=== PATIENT | female | born 1980 | race Caucasian/White ===

== ENCOUNTER 2022-04-10 17:54 | Emergency (ER) | payer OTHER, SELFPAY ==
[2022-04-10 18:18] VITALS: BP 112/73; PULSE 110; RESP 18; TEMP 37.9; O2SAT 97; BMI 28.8
--- NOTE | 2022-04-10 18:31 | ED_ITS ---
HPI - General Adult General Time Seen by Provider: 18:32 Date Seen: 04/10/22 Chief complaint: Fever Stated complaint: High Temp 101.8 - Chemo Patient Time Seen by Provider: 04/10/22 17:55 Source: patient Mode of arrival: ambulatory Limitations: no limitations History of Present Illness HPI narrative: Patient is a 42 year white female currently undergoing chemotherapy under Dr. Mitchell King [facility] for breast cancer. She has had a fever today, the kids at home have been sick. She has no cough of significance mild sore throat, mild achiness and some abdominal cramping. She last had chemotherapy last week. She is getting this through a port. She has noticed no skin rashes, neck stiffness, neurologic complaints. Related Data Home Medications Medication Instructions Recorded Confirmed cholecalciferol (vitamin D3) 50 50 mcg PO QDAY 01/26/22 03/23/22 mcg (2,000 unit) capsule fluoxetine 40 mg capsule 40 mg PO QDAY 01/26/22 03/23/22 ibuprofen 200 mg tablet (Advil) 400 mg PO Q8H 01/26/22 03/23/22 lidocaine-prilocaine 2.5 %-2.5 % 2.5 g topical ONCE PRN 01/26/22 03/23/22 topical cream olanzapine 5 mg tablet 5 mg PO QDAY PRN 01/26/22 03/23/22 ondansetron HCl 8 mg tablet 8 mg PO QDAY PRN 01/26/22 03/23/22 prochlorperazine maleate 10 mg 10 mg PO Q8-12H PRN 01/26/22 04/06/22 tablet Senna-S 1 tab BID PRN 03/16/22 03/23/22 oxybutynin chloride 5 mg tablet 5 mg PO QHS 03/23/22 03/30/22 Previous Rx's Medication Instructions Recorded lorazepam 0.5 mg tablet (Ativan) 0.5 mg PO QDAY PRN nausea and 01/26/22 vomiting #30 tabs Allergies Allergy/AdvReac Type Severity Reaction Status Date / Time No Known Drug Allergies Allergy Verified 03/23/22 11:39 Review of Systems Status of ROS: Reports: 6 or more systems reviewed and unremarkable except as noted in History and below PFSH PFSH Social History Non-prescribed substance use: denies use Exam Narrative: Exam Narrative: Objective: Patient has a temperature 100.2?, appears in no apparent distress, noncyanotic Breathing easily Speaks in unless even and nonlabored sentences HEENT is unremarkable scleral icterus mouth is clear, throat is not markedly reddened Neck is supple Chest clear Heart rhythm regular without murmur Abdomen benign soft Extremities are no edema neurologic nonfocal Const: Vital Signs, click to edit/add: Vital Signs - 24 hr 04/10/22 18:18 04/10/22 19:00 Temperature 100.2 F H Pulse Rate [Right Pulse Oximeter] 110 H Respiratory Rate 18 Blood Pressure [Ri ght Upper Arm] 112/73 Pulse Oximetry 97 Oxygen Delivery Me thod Room Air Room Air Course Vital Signs Vital signs: Initial Vital Signs Temperature 100.2 F H 04/10/22 18:18 Temperature Source Temporal Artery Scan 04/10/22 18:18 Pulse Rate 110 H 04/10/22 18:18 Respiratory Rate 18 04/10/22 18:18 Blood Pressure 112/73 04/10/22 18:18 Blood Pressure Mean 86 04/10/22 18:18 Blood Pressure Position Sitting 04/10/22 18:18 Pulse Oximetry 97 04/10/22 18:18 Oxygen Delivery Method 04/10/22 18:18 Vital Signs Temperature 100.2 F H 04/10/22 18:18 Pulse Rate 110 H 04/10/22 18:18 Respiratory Rate 18 04/10/22 18:18 Blood Pressure 112/73 04/10/22 18:18 Pulse Oximetry 97 04/10/22 18:18 Oxygen Delivery Method 04/10/22 18:18 Temperature 100.2 F H 04/10/22 18:18 Pulse Rate 110 H 04/10/22 18:18 Respiratory Rate 18 04/10/22 18:18 Blood Pressure 112/73 04/10/22 18:18 Pulse Oximetry 97 04/10/22 18:18 Oxygen Delivery Method 04/10/22 19:00 Medical Decision Making MDM Narrative Medical decision making narrative: Patient is a 42-year-old female undergoing chemotherapy for breast cancer, her children at home a been sick with a viral type illness. Will swab her for COVID/influenza/RSV. Will also do a strep test. Will get a blood culture, lab studies, will give her Rocephin 1 g IM to cover her until labs return tomorrow and cultures can be followed up. She can contact the [facility] for follow-up on laboratory studies. Return to the ED sooner problems or concerns. Tylenol or Advil as needed. Addendum: The patient is positive for COVID, she is also getting chemotherapy, I would recommend thanks I would recommend she contact [facility] to follow up her blood cultures, and to document symptoms tomorrow, and get recommendations from the oncologist regarding additional treatment for COVID in her situation. Lab Data Labs: Lab Results 04/10/22 04/10/22 04/10/22 Range/Units 18:35 18:40 19:08 WBC 5.19 (4.50-11.00) K/uL RBC 2.91 L (4.00-5.20) m/uL Hgb 9.4 L (12.0-16.0) gm/dL Hct 27.7 L (33.0-51.0) % MCV 95 (80-100) fL MCH 32 (26-34) pg MCHC 34 (32-36) gm/dL RDW Coeff of Mercedes 13.6 (11.5-15.5) % Plt Count 232 (140-440) K/uL Neut % (Auto) 84.7 H (42.0-72.0) % Lymph % (Auto) 6.2 L (20-44) % [place] % (Auto) 6.0 (0.0-11.0) % Eos % (Auto) 2.9 (0.0-7.0) % Baso % (Auto) 0.2 (0.0-3.0) % Neut # (Auto) 4.40 (1.7-7.0) K/uL Lymph # (Auto) 0.30 L (0.90-2.90) K/uL [place] # (Auto) 0.30 (0.00-0.90) K/UL Eos # (Auto) 0.15 (0.00-0.50) K/uL Baso # (Auto) 0.01 (0.00-0.30) K/uL Abs Immat Gran (auto) 0.00 (0.00-0.30) K/uL Imm/Tot Granulo (auto) 0.0 % Sodium (135-149) mmol/L Potassium (3.6-5.1) mmol/L Chloride (96-114) mmol/L Carbon Dioxide (20-32) mmol/L BUN (5-24) mg/dL Creatinine (0.5-1.5) mg/dL Estimated Creat Clear Estimated GFR ml/min Glucose (60-115) mg/dL Calcium (8.4-10.6) mg/dL Total Bilirubin (0.1-1.5) mg/dL Direct Bilirubin (0.0-0.5) mg/dL AST (12-35) U/L ALT (4-35) U/L Alkaline Phosphatase (40-150) U/L Total Protein (6.0-8.3) g/dL Albumin (3.3-5.0) g/dL SARS-CoV-2 (PCR) POSITIVE SARS-CoV-2 A (Negative) Influenza Type A (PCR) Negative PCR FLU A (Negative) Influenza Type B (PCR) Negative PCR FLU B (Negative) RSV (PCR) Negative PCR RSV (Negative) Group A Strep DNA NOT DETECTED (Not Detectd) 04/10/22 Range/Units 19:08 WBC (4.50-11.00) K/uL RBC (4.00-5.20) m/uL Hgb (12.0-16.0) gm/dL Hct (33.0-51.0) % MCV (80-100) fL MCH (26-34) pg MCHC (32-36) gm/dL RDW Coeff of Mercedes (11.5-15.5) % Plt Count (140-440) K/uL Neut % (Auto) (42.0-72.0) % Lymph % (Auto) (20-44) % [place] % (Auto) (0.0-11.0) % Eos % (Auto) (0.0-7.0) % Baso % (Auto) (0.0-3.0) % Neut # (Auto) (1.7-7.0) K/uL Lymph # (Auto) (0.90-2.90) K/uL [place] # (Auto) (0.00-0.90) K/UL Eos # (Auto) (0.00-0.50) K/uL Baso # (Auto) (0.00-0.30) K/uL Abs Immat Gran (auto) (0.00-0.30) K/uL Imm/Tot Granulo (auto) % Sodium 135 (135-149) mmol/L Potassium 4.0 (3.6-5.1) mmol/L Chloride 105 (96-114) mmol/L Carbon Dioxide 25 (20-32) mmol/L BUN 17 (5-24) mg/dL Creatinine 0.9 (0.5-1.5) mg/dL Estimated Creat Clear 74.77 Estimated GFR 83 ml/min Glucose 112 (60-115) mg/dL Calcium 8.7 (8.4-10.6) mg/dL Total Bilirubin 0.3 (0.1-1.5) mg/dL Direct Bilirubin 0.0 (0.0-0.5) mg/dL AST 22 (12-35) U/L ALT 30 (4-35) U/L Alkaline Phosphatase 72 (40-150) U/L Total Protein 6.1 (6.0-8.3) g/dL Albumin 3.8 (3.3-5.0) g/dL SARS-CoV-2 (PCR) (Negative) Influenza Type A (PCR) (Negative) Influenza Type B (PCR) (Negative) RSV (PCR) (Negative) Group A Strep DNA (Not Detectd) Discharge Plan Discharge Clinical Impression: Fever, Chemotherapy management, encounter for, Breast cancer Patient Disposition: Home w/ Parent or Adult Condition: Stable Additional Instructions: Light activity, fluids, regular diet as tolerated. Tylenol or Advil as needed for discomfort or fever. Will give her Rocephin tonight to cover for any infection, until blood cultures are return. Please call [facility] tomorrow for laboratory follow-up, and follow up with the blood culture results. Return sooner to the ER problems concerns difficulty. We will call with results of the swab for COVID/influenza/RSV. Addendum: The patient is positive for COVID, I would recommend that they contact [facility] tomorrow and get lab updates, follow-up blood cultures and document symptoms. Also can discuss with oncologist regarding additional treatment for COVID if needed Activity Level: Light activity Discharge Diet: Regular Prescriptions: No Action lidocaine-prilocaine 2.5-2.5 % cream 2.5 g topical ONCE PRN prochlorperazine maleate 10 mg tablet 10 mg PO Q8-12H PRN Hold Instructions: no nausea olanzapine 5 mg tablet 5 mg PO QDAY PRN Hold Instructions: not needed at this time ondansetron HCl 8 mg tablet 8 mg PO QDAY PRN Hold Instructions: not needed at this tme fluoxetine 40 mg capsule 40 mg PO QDAY ibuprofen [Advil] 200 mg tablet 400 mg PO Q8H cholecalciferol (vitamin D3) 50 mcg (2,000 unit) capsule 50 mcg PO QDAY lorazepam [Ativan] 0.5 mg tablet 0.5 mg PO QDAY PRN (Reason: nausea and vomiting) Qty: 30 0RF Hold Instructions: not needing right now oxybutynin chloride 5 mg tablet 5 mg PO QHS Senna-S 1 tab 1 tab BID PRN Follow Up/Referrals: Luz Nagy MD [Primary Care Provider] - Stand Alone Forms: [employer] Info Instructions
--- OUTSIDE RECORDS SUMMARY | 2022-04-10 18:36 | XMS_ITS | Clinical Summary ---
:1980 Author Organization [employer] [facility] [place] [address] Care Team Providers Name Role Phone Roxanne Kerns MD Unavailable Miguelina Cuenca RN Unavailable Nelli Palmer DO Primary Care Provider Ibis Velazquez MD Unavailable Blake Wyatt MD Unavailable Allergies No known active allergies Medications Medication Sig Dispensed Refills Start Date End Date Status FLUoxetine (PROZAC) Take 40 mg by mouth 0 09/22/2021 Active 40 mg capsule once daily. cholecalciferol, Take 1 Tablet (5,000 0 12/03/2021 Active Vitamin D3, 5,000 units) by mouth once unit tab tablet daily. acetaminophen Take 2 Tablets 0 12/15/2021 Active (TYLENOL EXTRA (1,000 mg) by mouth STRGTH) 500 mg every 6 hours if tablet needed for Pain (For mild pain 1st choice. May take either Tylenol tablet or liquid, if both ordered.). Max acetaminophen dose: 4000mg in 24 hrs. ibuprofen (ADVIL; Take 1 Tablet (600 0 12/15/2021 Active MOTRIN) 600 mg mg) by mouth every 8 tablet hours if needed for Pain (For mild pain 2nd choice). lidocaine-prilocaine Apply pea size 30 g 1 01/07/2022 Active (EMLA) 2.5-2.5 % amount over port creamIndications: about 1 hour prior Malignant neoplasm to port access. of breast in female, Cover with a estrogen receptor dressing such as positive, tegaderm or plastic unspecified wrap and do not laterality, fully rub in. unspecified site of breast (HC) Therapeutic As directed. For 1 Each 0 01/07/2022 Active WigIndications: chemotherapy-induced Malignant neoplasm alopecia of breast in female, estrogen receptor positive, unspecified laterality, unspecified site of breast (HC) oxybutynin Take 1 Tablet (5 mg) 60 Tablet 0 01/18/2022 Active (DITROPAN) 5 mg by mouth in the tabletIndications: morning and 1 Tablet Malignant neoplasm (5 mg) in the of female breast, evening. unspecified estrogen receptor status, unspecified laterality, unspecified site of breast (HC) Active Problems Problem Noted Date Malignant neoplasm of overlapping sites of left breast in female, estrogen 11/10/2021 receptor positive Cancer Staging: Clinical: Stage IA (cT1c , cN0, cM0, G3, ER+, CA+, HER2-) - Signed by Roxanne Kerns MD on 11/10/2021 Pathologic: Stage IB (pT1, pN1a(sn), cM0 , G3, ER+, CA+, HER2-) - Signed by Roxanne Kerns MD on 12/16/2021 Infiltrating ductal carcinoma of breast 10/28/2021 Family history of blood clots 07/23/2019 Overview: Father and mother had blood clots per pa tient due to 'bad veins in his legs.' had striped Family history of breast cancer 07/23/2019 Overview: Sister breast cancer age 51. Sister did not have genetic testing per patient Encounters Date Type Specialty Care Team Description 01/18/2022 Orders Only Ibis Velazquez MD <No scans attached> 01/18/2022 Telephone Laura Ibarra RN 01/12/2022 Hospital Encounter Malignant neoplasm of overlapping sit es of left breast in femal e, estrogen recept or positive (HC) ( Primary Dx) 01/12/2022 Office Visit Ibis Velazquez MD Follow Up 01/12/2022 Telephone Jason Queen Follow Up (na usea ) MD Nadeem 01/11/2022 Anesthesia Event Heriberto Camarena MD Desa, Tenzin, MD 01/11/2022 Surgery Dakota Kamara INSERTION RIG HT INTERNAL MD Jesse JUGULAR MAMADOU FIERRO 01/11/2022 Hospital Encounter Dakota Kamara MD 01/11/2022 Travel from Last 3 Months Immunizations Name Administration Dates Next Due COVID-19 vaccine (Moderna 100mcg/0.5mL) JACLYN DOUGLAS 08/27/2020, 07/30/2020 COVID-19 vaccine (Pfizer-BioNTech 30mcg/0.3mL) 12YO+ 022 AYLEEN-SUCROSE JACLYN DOUGLAS Influenza RIV4 (Age 18+ Years) PRESERV FREE 04/02/2020 Td (Age >=7 Years) 10/14/2021 Family History Medical History Relation Name Comments Cancer Father metastatic cance r of unknown primary Melanoma Father Other Father DVT Skin cancer Father not melanoma Cancer-breast Maternal Aunt passed due to br [place] Osteoarthritis Maternal Grandmother Cancer-colon Maternal Uncle Good Health Mother Cancer-breast Paternal Aunt dx late 70s - ea rly 80s Cancer-breast Sister 1 dx approx 2009, doing well as of 2021 Rheum arthritis Sister 2 Cancer-ovarian No Family History Cancer-pancreatic No Family History Relation Name Status Comments Father (Age 75) cancer Maternal Aunt Maternal Grandmother Maternal Uncle Mother Alive Paternal Aunt Alive Sister 1 Alive Sister 2 Social History Tobacco Use Types Packs/Day Years Used Date Never Smoker Smokeless Tobacco: Never Used Tobacco Cessation: Counseling Given: Yes Alcohol Use Standard Drinks/Week Comments Yes 0 (1 standard drink = 0.6 oz pure alcoho l) a couple drinks a week. Alcohol Habits Answer Date Recorded How often do you have a drink containing 2-3 times a week 07/23/2019 alcohol? How many drinks containing alcohol do you have 1 or 2 07/23/2019 on a typical day when you are drinking? How often do you have six or more drinks on one Never 07/23/2019 occasion? Comment: a couple drinks a week. 01/07/2022 Sex Assigned at Date Recorded Not on file Obstetrics History Para Term AB IAB SAB Ectopic Multiple Living Live Births 3 3 3 0 0 0 0 0 0 3 3 Date Outcome GA Total Labor/2nd/3rd Weight Sex Delivery Anes PTL Kendra A 1 A5 Name Clin Labor Term Vag Misty ng Term Vag Misty ng Term Vag Misty ng Last Filed Vital Signs Vital Sign Reading Time Taken Comments Blood Pressure 118/67 01/12/2022 8:52 AM CDT Pulse 65 01/12/2022 8:52 AM CDT Temperature 36.7 ??C (98.1 ??F) 01/12/2022 8:52 AM CDT Respiratory Rate 16 01/12/2022 8:52 AM CDT Oxygen Saturation 98% 01/11/2022 12:00 PM CDT Inhaled Oxygen Concentration - - Weight 74.6 kg (164 lb 8 oz) 01/12/2022 8:52 AM CDT Height 165.1 cm (5' 5) 01/12/2022 8:52 AM CDT Body Mass Index 27.37 01/12/2022 8:52 AM CDT Plan of Treatment Upcoming Encounters Date Type Specialty Care Team Description 06/21/2022 Office Visit Silvia Saunders PA [address] [address] (Wo rk) Health Maintenance Due Date Last Done Comments Pneumococcal series for age 19-64 02/19/1988 (1 - PCV) COVID-19 vaccine series (4 - 12/09/2021 10/14/2021, 021, Booster) 07/30/2020 Influenza for age 9-49 01/27/2022 04/02/2020 Depression screening for age 12+ 10/14/2022 10/14/2021, , 03/01/2017, Additional history exists BMI (ht and wt on same day) for 01/12/2023 01/12/2022, 12/27, age 18+ 01/05/2022, Additional history exists Pap test for age 21-65 07/23/2024 07/23/2019, 07/23/2019, 07/16/2015 Tetanus booster 10/15/2031 10/14/2021, 09/27/2007 (Completed outside of [facility]) Tdap Completed 09/27/2007 (Completed outside of [facility]) Hepatitis C screening for age Completed 01/12/2022 18-79 Medical Devices Implanted Type Area Holistic Pulser Device Shelf Model / Identifier Expiration Serial / Date Lot Port 8fr Powerport Clearvue Isp Micro Intrdcr - [id number] Right: Bard Peripheral 12/26/2022 [id number] / Implanted: Qty: 1 on 01/11/2022 by Dakota Abbasi MD at [facility] [employer] / Vein [id number] Procedures Procedure Name Priority Date/Time Associated Comments Diagnosis HBSAG (HBS) Add On 01/12/2022 8:31 Malignant neoplasm Result s for this AM CDT of overlapping procedure are in sites of left the results breast in female, section. estrogen receptor positive (HC) ANTI HCV Add On 01/12/2022 8:31 Malignant neoplasm Result s for this AM CDT of overlapping procedure are in sites of left the results breast in female, section. estrogen receptor positive (HC) CBC WITH AUTO STAT 01/12/2022 8:31 Malignant neoplasm Resul ts for this DIFFERENTIAL AM CDT of overlapping procedure are in sites of left the results breast in female, section. estrogen receptor positive (HC) COMP METABOLIC PANEL STAT 01/12/2022 8:31 Malignant neoplas m Results for this AM CDT of overlapping procedure are in sites of left the results breast in female, section. estrogen receptor positive (HC) CBC WITH AUTO STAT 01/12/2022 8:31 Malignant neoplasm Resul ts for this DIFFERENTIAL AM CDT of overlapping procedure are in sites of left the results breast in female, section. estrogen receptor positive (HC) XR CHEST 1 VIEW CHETAN 01/11/2022 10:51 Results for this PORTABLE AM CDT procedure are i n the results section. XR C-ARM CVAD Routine 01/11/2022 10:14 Results fo r this AM CDT procedure are i n the results section. SUPRAGLOTTIC-LMA Routine 01/11/2022 9:45 Results for this AM CDT procedure are i n the results section. INSERTION MAMADOU Class E Urgent 01/11/2022 9:07 Breast Cancer CATHETER AM CDT Case Notes C ARM URINE Preop 01/11/2022 8:00 AM CDT Re sults for this procedure are in the results section . from Last 3 Months Results (ABNORMAL) CBC WITH AUTO DIFFERENTIAL (01/12/2022 8:31 AM CDT) [facility] Method Time Signature WHITE BLOOD 6.5 4.5 - 01/12/2022 [facility] COUNT 11.0 9:03 AM CDT LABORATORY-JOIE thou/cu TRAL mm LABORATORY RED BLOOD COUNT 3.76 (L) 4.00 - 01/12/2022 [facility] 5.20 9:03 AM CDT LABORATORY-JOIE mil/cu mm TRAL LABORATORY HEMOGLOBIN 11.9 (L) 12.0 - 01/12/2022 [facility] 16.0 g/dL 9:03 AM CDT LABORATORY-JOIE TRAL LABORATORY HEMATOCRIT 35.4 33.0 - 01/12/2022 [facility] 51.0 % 9:03 AM CDT LABORATORY-JOIE TRAL LABORATORY MCV 94 80 - 100 01/12/2022 [facility] fL 9:03 AM CDT LABORATORY-JOIE TRAL LABORATORY MCH 31.6 26.0 - 01/12/2022 [facility] 34.0 pg 9:03 AM CDT LABORATORY-JOIE TRAL LABORATORY MCHC 33.6 32.0 - 01/12/2022 [facility] 36.0 g/dL 9:03 AM CDT LABORATORY-JOIE TRAL LABORATORY RDW 11.9 11.5 - 01/12/2022 [facility] 15.5 % 9:03 AM CDT LABORATORY-JO[facility] TRAL LABORATORY PLATELET COUNT 252 140 - 440 01/12/2022 [facility] thou/cu 9:03 AM CDT LABORATORY-JOIE mm TRAL LABORATORY MPV 9.3 6.5 - 01/12/2022 [facility] 11.0 fL 9:03 AM CDT LABORATORY-JOIE TRAL LABORATORY NRBC 0.0 % 01/12/2022 [facility] 9:03 AM CDT LABORATORY-JOIE TRAL LABORATORY ABS NRBC 0.0 thou /cu 01/12/2022 [facility] mm 9:03 AM CDT LABORATORY-JO[facility] TRAL LABORATORY % NEUT 53.1 % 01/12/2022 [facility] 9:03 AM CDT LABORATORY-[facility] TRAL LABORATORY % LYMPH 38.4 % 01/12/2022 [facility] 9:03 AM CDT LABORATORY-JO[facility] TRAL LABORATORY % MONO 7.1 % 01/12/2022 [facility] 9:03 AM CDT LABORATORY-JO[facility] TRAL LABORATORY % EOS 0.9 % 01/12/2022 [facility] 9:03 AM CDT LABORATORY-JOIE TRAL LABORATORY % BASO 0.2 % 01/12/2022 [facility] 9:03 AM CDT LABORATORY-JO[facility] TRAL LABORATORY % IMMATURE GRAN 0.3 % 01/12/2022 [facility] (METAS,MYELOS,CA 9:03 AM CDT LABORATORY- JOIE OS) TRAL LABORATORY ABSOLUTE 3.4 1.7 - 7.0 01/12/2022 [facility] NEUTROPHILS thou/cu 9:03 AM CDT LABORATORY-JO[facility] mm TRAL LABORATORY ABSOLUTE 2.5 0.9 - 2.9 01/12/2022 [facility] LYMPHOCYTES thou/cu 9:03 AM CDT LABORATORY-JO[facility] mm TRAL LABORATORY ABSOLUTE 0.5 <0.9 01/12/2022 [facility] MONOCYTES thou/cu 9:03 AM CDT LABORATORY-JO[facility] mm TRAL LABORATORY ABSOLUTE 0.1 <0.5 01/12/2022 [facility] EOSINOPHILS thou/cu 9:03 AM CDT LABORATORY-JOIE mm TRAL LABORATORY ABSOLUTE 0.0 <0.3 01/12/2022 [facility] BASOPHILS thou/cu 9:03 AM CDT LABORATORY-JO[facility] mm TRAL LABORATORY ABSOLUTE 0.0 <0.3 01/12/2022 [facility] IMMATURE thou/cu 9:03 AM CDT LABORATORY-JOIE GRANULOCYTES(MET mm TRAL ,MYELOS,PROS) LABORATORY Specimen Anatomical Collection Method / Collection Time Recei dequan Time (Source) Location / Volume Laterality Blood BLOOD SPECIMEN / Non-Lab 01/12/2022 8:31 01/13/20 22 8:41 Unknown Venipuncture / AM CDT AM CDT Unknown Narrative [facility] LABORATORY-CENTRAL LABORAT ORY - 01/12/2022 9:03 AM CDT This procedure was originally ordered at [facility]. This procedure was originally ordered at [facility]. Ibis Velazquez MD HEMATOLOGY Performing Organization Address City/State/ZIP Code Phon e Number [facility] [address] [place] [address] LABORATORY-CENTRAL 2000 LABORATORY HBSAG (HBS) (01/12/2022 8:31 AM CDT) [facility] Method Time Signature HBSAG Nonreactive Nonreactive 01/12/2022 [facility] 10:52 AM CDT LABORATORY-JOIE TRAL LABORATORY Specimen Anatomical Collection Method / Collection Time Recei dequan Time (Source) Location / Volume Laterality Blood BLOOD SPECIMEN / Non-Lab 01/12/2022 8:31 01/13/20 22 8:41 Unknown Venipuncture / AM CDT AM CDT Unknown Ibis Velazquez MD SEND OUTS Performing Organization Address City/[facility] Phon e Number [facility] [address] [place] [address] LABORATORY-CENTRAL 2000 LABORATORY ANTI HCV (01/12/2022 8:31 AM CDT) [facility] Method Time Signature HEPATITIS C Non-Reacti Non-Reacti 01/12/2022 [facility] ANTIBODY ve ve 10:52 AM CDT LABORATORY-[facility] TRAL LABORATORY Comment: Antibodies to HCV not detected; does not exclude the possibility of exposure to HCV. Specimen Anatomical Collection Method / Collection Time Recei dequan Time (Source) Location / Volume Laterality Blood BLOOD SPECIMEN / Non-Lab 01/12/2022 8:31 01/13/20 22 8:41 Unknown Venipuncture / AM CDT AM CDT Unknown Ibis Velazquez MD SEND OUTS Performing Organization Address [facility] Phon e Number [facility] [address] [place], [place] [address] [place] [address] LABORATORY-CENTRAL 2000 LABORATORY (ABNORMAL) COMP METABOLIC PANEL (01/12/2022 8:31 AM CDT) [facility] Method Time Signature SODIUM 139 135 - 145 01/12/2022 [facility] mmol/L 9:08 AM CDT LABORATORY-JOIE TRAL LABORATORY POTASSIUM 3.5 3.5 - 5.0 01/12/2022 [facility] mmol/L 9:08 AM CDT LABORATORY-JOIE TRAL LABORATORY CHLORIDE 106 98 - 110 01/12/2022 [facility] mmol/L 9:08 AM CDT LABORATORY-JOIE TRAL LABORATORY CO2,TOTAL 24 21 - 31 01/12/2022 [facility] mmol/L 9:08 AM CDT LABORATORY-JOIE TRAL LABORATORY ANION GAP 9 5 - 18 01/12/2022 [facility] 9:08 AM CDT LABORATORY-JOIE TRAL LABORATORY GLUCOSE 107 (H) 65 - 100 01/12/2022 [facility] mg/dL 9:08 AM CDT LABORATORY-JO[facility] TRAL LABORATORY CALCIUM 8.6 8.5 - 10.5 01/12/2022 [facility] mg/dL 9:08 AM CDT LABORATORY-[facility] TRAL LABORATORY BUN 13 8 - 25 01/12/2022 [facility] mg/dL 9:08 AM CDT LABORATORY-[facility] TRAL LABORATORY CREATININE 0.69 0.57 - 01/12/2022 [facility] 1.11 mg/dL 9:08 AM CDT LABORATORY-[facility] TRAL LABORATORY BUN/CREAT RATIO 19 10 - 20 01/12/2022 [facility] 9:08 AM CDT LABORATORY-[facility] TRAL LABORATORY ALBUMIN 3.8 3.5 - 5.2 01/12/2022 [facility] g/dL 9:08 AM CDT LABORATORY-[facility] TRAL LABORATORY PROTEIN,TOTAL 6.1 6.0 - 8.0 01/12/2022 [facility] g/dL 9:08 AM CDT LABORATORY-[facility] TRAL LABORATORY GLOBULIN 2.3 2.0 - 3.7 01/12/2022 [facility] g/dL 9:08 AM CDT LABORATORY-[facility] TRAL LABORATORY A/G RATIO 1.7 1.0 - 2.0 01/12/2022 [facility] 9:08 AM CDT LABORATORY-JO[facility] TRAL LABORATORY BILIRUBIN,TOTAL 0.3 0.2 - 1.2 01/12/2022 [facility] mg/dL 9:08 AM CDT LABORATORY-JOIE TRAL LABORATORY ALK PHOSPHATASE 73 50 - 136 01/12/2022 [facility] IU/L 9:08 AM CDT LABORATORY-[facility] TRAL LABORATORY ALT (SGPT) 7 (L) 8 - 45 01/12/2022 [facility] IU/L 9:08 AM CDT LABORATORY-[facility] TRAL LABORATORY AST (SGOT) 9 2 - 40 01/12/2022 [facility] IU/L 9:08 AM CDT LABORATORY-[facility] TRAL LABORATORY eGFR >90 >90 01/12/2022 [facility] mL/min/1.7 9:08 AM CDT LABORATORY-JOIE 3m2 TRAL LABORATORY Comment: As of 2021, eGFR is calcu lated by the CKD-EPI creatinine equation without race adjustment. eGFR can be inf luenced by muscle mass, exercise, and diet. The reported eGFR is an estimation only and is only applicable if the renal function is stable. Specimen Anatomical Collection Method / Collection Time Recei dequan Time (Source) Location / Volume Laterality Blood BLOOD SPECIMEN / Non-Lab 01/12/2022 8:31 01/13/20 22 8:41 Unknown Venipuncture / AM CDT AM CDT Unknown Ibis Velazquez MD CHEMISTRY Performing Organization Address City/State/ZIP Code Phon e Number [facility] [address] [place] [address] LABORATORY-CENTRAL 2000 LABORATORY XR CHEST 1 VIEW PORTABLE (01/11/2022 10:51 AM CDT) Anatomical Region Laterality Modality HEART, THORAX, CHEST Digital Radiography Specimen (Source) Anatomical Collection Method Collection Time Re ceived Time Location / / Volume Laterality 01/11/2022 11:58 AM CDT Impressions 01/11/2022 11:58 AM CDT Status post right chest wall port placement without evidence of complication. Dictated by Zay Luna MD @ Jan 11 2022 11:58AM (Electronically Signed) ?? Narrative 01/11/2022 11:58 AM CDT For Patients: ??As a result of the Cures Act, medical imaging exams and procedure report s are released immediately into your [facility] medical record. ??You may view this report before your referring provider. ??If you have questions, please contact your health care provider. INDICATION: Postprocedure. COMPARISON: 08/06/2013. TECHNIQUE: Single view chest radiograph. FINDINGS: Interval placement of a right IJ CVC wit h tip terminating near the superior atrial caval junction. Normal heart size. Clear lungs. No pleural effusion or pneumothorax. Left axillary clips in place. Procedure Note Zay Luna MD - 2 For Patients: As a result of the Cures Act, medical imaging exams and procedure reports are released immediately into your electronic medical record. You may view this report before your referring provider. If you have questions, please contact [facility] health care provider. INDICATION: Postprocedure. COMPARISON: 08/06/2013. TECHNIQUE: Single view chest radiograph. FINDINGS: Interval placement of a right IJ CVC wit h tip terminating near the superior atrial caval junction. Normal heart size. Clear lungs. No pleural effusion or pneumothorax. Left axillary clips in place. IMPRESSION: Status post right chest wall port placem ent without evidence of complication. Dictated by Zay Luna MD @ Jan 11 2022 11:58AM (Electronically Signed) [facility] XR C-ARM CVAD (01/11/2022 10:14 AM CDT) Anatomical Region Laterality Modality Digital Radiography Specimen (Source) Anatomical Location Collection Method / Collectio n Time Received Time / Laterality Volume Impressions 01/11/2022 1:17 PM CDT ??Right IJ CVC port catheter appears appropriately positioned. ?? Zay Luna M.D. Body/Diagnostic Radiologist [employer] [email or web address] SPD/jj / ?? Narrative 01/11/2022 1:17 PM CDT For Patients: As a result of the Cures Act, medical imaging exams and procedure reports are released immediately into your electronic medical record. ??You may view this repo rt before your referring provider. ?? If you have questions, please contact [facility] provider. C-ARM, 01/11/2022 CLINICAL HISTORY: ??Port-A-Cath placemen t. COMPARISON: ??None. TECHNIQUE: ??Single fluoroscopic image f rom Port-A-Cath placement. Fluoroscopy Time: ??19 seconds. FINDINGS: ??A right IJ CVC port catheter tip terminates near the superior cavoatrial junction. ??No acute abnormal ity within the visualized thorax. Dakota Kamara MD FLUOROSCOPY HCHG MASK PR5 (01/11/2022 9:45 AM CDT) Narrative Ruben Mcgarry CRNA - 01/11/2022 9:45 A M CDT Ruben Mcgarry CRNA ? 01/11/2022 ??9:46 AM Procedure: Supraglottic Patient location during procedure: OR Supraglottic Airway Properties Type: unique Tube Size: 4 Insertion Attempts: 1 Placement Verification: auscultation and CO2 detection Assessment Assessment: atraumatic Electronically signed by Ruben Mcgarry CRNA ? Heriberto Camarena MD ANESTHESIA PX NOTE ORDERABL ES Urine (01/11/2022 8:00 AM CDT) Analysis Performed At Patho logist Time Signature ,URIN Negative Negative 01/11/2022 [facility] 8:08 AM CDT LABORATORY-JOIE TRAL LABORATORY Specimen Anatomical Collection Method Collection Time Receive d Time (Source) Location / / Volume Laterality Urine URINE SPECIMEN / Non-Blood / 01/11/2022 8:00 AM 01/11 8:01 Unknown Unknown CDT AM CDT [facility] Performing Organization Address City/State/ZIP Code Phon e Number [facility] [address] [place] [address] LABORATORY-CENTRAL 2000 LABORATORY from Last 3 Months Insurance Payer Benefit Plan / Subscriber ID Effective Dates Phone Addre ss Type Group [facility] [id number] 2021-Present [address] [address] [place] [address] Advance Directives Latest Code Status on File Code Status Date Activated Date Inactivated Comments Full Code 01/11/2022 7:59 AM 01/11/2022 2:30 PM Code Status Discussion: Unable to Assess Preferences, Provid er to review later Full Code 12/15/2021 11:00 AM 12/15/2021 7:58 PM Code Status Discussion: Unable to Assess Preferences, Provid er to review later Care Teams [employer] Account Manager Relationship Specialty Start Date End Date Nelli Palmer, PCP - General Family Practice 12/03/21 DO [address] [place] [address] Roxanne Kerns MD Surgery - General 10/29/21 [address] [address] [place] [address] Miguelina Cuenca, BRET Nurse Navigator - Registered Nurse 10/29/21 [address] [place] [address] [address] [place] [address] Ibis Velazquez MD Hematology Hematology and 12/17/21 [address] [place] [address] [place] [address] Blake Wyatt MD Internal Medicine 12/20/21 [address] [place] [address]
[2022-04-10 19:04] LABS: Strep A DNA Probe* NOT DETECTED (Not Detectd)
[2022-04-10 19:20] LABS: Basophils Absolute Auto 0.01 K/uL (0.00-0.30); Basophils Percent Auto 0.2 % (0.0-3.0); Eosinophils Absolute Auto 0.15 K/uL (0.00-0.50); Eosinophils Percent Auto 2.9 % (0.0-7.0); Hematocrit 27.7 % (33.0-51.0); Hemoglobin* 9.4 gm/dL (12.0-16.0); Lymphocytes Percent Auto 6.2 % (20-44); Mean Corpuscular HGB Conc 34 gm/dL (32-36); Mean Corpuscular Hemoglobin 32 pg (26-34); Mean Corpuscular Volume 95 fL (80-100); Neutrophils Percent Auto 84.7 % (42.0-72.0); Platelet Count* 232 K/uL (140-440); RDW Coefficient of Variation % 13.6 % (11.5-15.5); Red Blood Count 2.91 m/uL (4.00-5.20); White Blood Count* 5.19 K/uL (4.50-11.00)
[2022-04-10] MEDS: cefTRIAXone 1 GM in 0.9 % SODIUM CHLORIDE Mini-bag 100 ML IVPB (19:20)
[2022-04-10 19:24] LABS: Slide Review Reflex No
[2022-04-10 19:28] LABS: PCR FLU A Negative PCR FLU A (Negative); PCR FLU B Negative PCR FLU B (Negative); PCR RSV Negative PCR RSV (Negative)
[2022-04-10 19:31] LABS: Chloride* 105 mmol/L (96-114)
[2022-04-10 19:32] LABS: Albumin* 3.8 g/dL (3.3-5.0); Sodium* 135 mmol/L (135-149)
[2022-04-10 19:33] LABS: SARS PCR* POSITIVE SARS-CoV-2 (Negative)
[2022-04-10 19:35] LABS: Alanine Aminotransferase* 30 U/L (4-35); Alkaline Phosphatase* 72 U/L (40-150); Aspartate Amino Transferase* 22 U/L (12-35); Bilirubin Total* 0.3 mg/dL (0.1-1.5); Blood Urea Nitrogen* 17 mg/dL (5-24); Calcium* 8.7 mg/dL (8.4-10.6); Carbon Dioxide* 25 mmol/L (20-32); Creatinine* 0.9 mg/dL (0.5-1.5); Est. Creatinine Clearance* 74.77; Estimated Glomerular Filt Rate 83 ml/min; Glucose* 112 mg/dL (60-115); Total Protein* 6.1 g/dL (6.0-8.3)
[2022-04-10] MEDS: HEPARIN 500 UNIT/5 ML SYRINGE IVF (20:00)
== END 2022-04-10 20:19 | disposition home or self-care (01) ==
PROVIDERS: Emergency Provider Family Medicine; PCP Internal Medicine Hematology & Oncology
DX: R50.9 Fever, unspecified (principal); Z51.11 Encounter for antineoplastic chemotherapy
CPT/HCPCS: 36415; 80048; 80076; 85025; 87040; 87502; 87634; 87635; 87651; 96372; 99283; 99284; J0696; J1642

== ENCOUNTER 2022-06-01 08:15 | Outpatient (RCR) | payer OTHER, SELFPAY ==
--- NOTE | 2022-01-18 10:24 | URNOTE ---
Received request for prior authorization for Doxorubicin (J9000), Paclitaxel (J9267), Cyclophosphamide (J9070), Fosaprepitant (J1453), Palonosetron (J2469) and Pegfilgrastim (J2506). These have been approved as ordered 01/18/2022-01/18/2023. Auth #[id number]
[2022-01-26 08:52] LABS: Basophils Percent Auto 0.7 % (0.0-3.0); Eosinophils Percent Auto 0.7 % (0.0-7.0); Hematocrit 37.4 % (33.0-51.0); Hemoglobin* 12.5 gm/dL (12.0-16.0); Immature Granulocytes Abs Auto 0.15 K/uL (0.00-0.30); Lymphocytes Percent Auto 30.2 % (20-44); Mean Corpuscular HGB Conc 33 gm/dL (32-36); Mean Corpuscular Hemoglobin 31 pg (26-34); Mean Corpuscular Volume 93 fL (80-100); Monocytes Percent Auto 8.8 % (0.0-11.0); Neutrophils Percent Auto 55.9 % (42.0-72.0); Platelet Count* 217 K/uL (140-440); RDW Coefficient of Variation % 11.9 % (11.5-15.5); Red Blood Count 4.04 m/uL (4.00-5.20); White Blood Count* 4.07 K/uL (4.50-11.00)
[2022-01-26 09:05] LABS: Slide Review Reflex No
[2022-01-26 09:17] LABS: Albumin* 4.1 g/dL (3.3-5.0); Chloride* 105 mmol/L (96-114)
[2022-01-26 09:18] LABS: Potassium* 3.9 mmol/L (3.6-5.1); Sodium* 137 mmol/L (135-149)
[2022-01-26 09:20] LABS: Alkaline Phosphatase* 100 U/L (40-150); Aspartate Amino Transferase* 22 U/L (12-35); Bilirubin Total* 0.3 mg/dL (0.1-1.5); Blood Urea Nitrogen* 17 mg/dL (5-24); Carbon Dioxide* 27 mmol/L (20-32); Creatinine* 0.6 mg/dL (0.5-1.5); Estimated Glomerular Filt Rate 117 ml/min; Total Protein* 6.8 g/dL (6.0-8.3)
[2022-01-26 09:21] LABS: Alanine Aminotransferase* 26 U/L (4-35); Calcium* 8.9 mg/dL (8.4-10.6); Glucose* 103 mg/dL (60-115)
[2022-01-26] MEDS: dexAMETHasone 10 MG in 0.9 % SODIUM CHLORIDE 100 ml 100 ML 404 MG IVPB (11:29)
[2022-01-26] MEDS: PALONOSETRON 0.25 MG/5 ML inj IV (11:29)
[2022-01-26] MEDS: FOSAPREPITANT 150 MG inj 150 MG in 0.9 % SODIUM CHLORIDE 250 ml 250 ML 510 MG IVPB (11:50)
[2022-01-26] MEDS: SODIUM CHLORIDE 0.9 % (FLUSH) 10 ML SYRINGE IVF (13:29)
[2022-01-26] MEDS: HEPARIN 500 UNIT/5 ML SYRINGE IVF (13:29)
[2022-02-09 09:22] VITALS: BP 113/75; PULSE 88; RESP 16; TEMP 36.1; O2SAT 97
[2022-02-09 09:56] LABS: Basophils Absolute Auto 0.05 K/uL (0.00-0.30); Basophils Percent Auto 0.6 % (0.0-3.0); Eosinophils Absolute Auto 0.01 K/uL (0.00-0.50); Eosinophils Percent Auto 0.1 % (0.0-7.0); Hematocrit 34.4 % (33.0-51.0); Hemoglobin* 11.4 gm/dL (12.0-16.0); Immature Granulocytes Abs Auto 0.14 K/uL (0.00-0.30); Lymphocytes Percent Auto 13.6 % (20-44); Mean Corpuscular HGB Conc 33 gm/dL (32-36); Mean Corpuscular Hemoglobin 31 pg (26-34); Mean Corpuscular Volume 93 fL (80-100); Neutrophils Percent Auto 77.9 % (42.0-72.0); Platelet Count* 188 K/uL (140-440); RDW Coefficient of Variation % 12.2 % (11.5-15.5); Red Blood Count 3.72 m/uL (4.00-5.20); White Blood Count* 7.72 K/uL (4.50-11.00)
[2022-02-09 09:59] LABS: Slide Review Reflex No
[2022-02-09 10:16] LABS: Albumin* 4.1 g/dL (3.3-5.0); Chloride* 105 mmol/L (96-114); Potassium* 3.8 mmol/L (3.6-5.1); Sodium* 136 mmol/L (135-149)
[2022-02-09 10:18] LABS: Creatinine* 0.6 mg/dL (0.5-1.5); Estimated Glomerular Filt Rate 117 ml/min
[2022-02-09 10:19] LABS: Alanine Aminotransferase* 23 U/L (4-35); Alkaline Phosphatase* 129 U/L (40-150); Aspartate Amino Transferase* 22 U/L (12-35); Bilirubin Total* 0.1 mg/dL (0.1-1.5); Blood Urea Nitrogen* 14 mg/dL (5-24); Carbon Dioxide* 23 mmol/L (20-32); Glucose* 101 mg/dL (60-115); Total Protein* 6.4 g/dL (6.0-8.3)
[2022-02-09 10:20] LABS: Calcium* 8.4 mg/dL (8.4-10.6)
[2022-02-09] MEDS: PALONOSETRON 0.25 MG/5 ML inj IV (12:36)
[2022-02-09] MEDS: dexAMETHasone 10 MG in 0.9 % SODIUM CHLORIDE 100 ml 100 ML 408 MG IVPB (12:36)
[2022-02-09] MEDS: FOSAPREPITANT 150 MG inj 150 MG in 0.9 % SODIUM CHLORIDE 250 ml 250 ML 510 MG IVPB (13:02)
[2022-02-23 08:30] LABS: Basophils Absolute Auto 0.05 K/uL (0.00-0.30); Basophils Percent Auto 0.9 % (0.0-3.0); Eosinophils Absolute Auto 0.04 K/uL (0.00-0.50); Eosinophils Percent Auto 0.7 % (0.0-7.0); Hematocrit 33.8 % (33.0-51.0); Hemoglobin* 11.4 gm/dL (12.0-16.0); Immature Granulocytes Abs Auto 0.23 K/uL (0.00-0.30); Lymphocytes Percent Auto 13.4 % (20-44); Mean Corpuscular HGB Conc 34 gm/dL (32-36); Mean Corpuscular Hemoglobin 32 pg (26-34); Mean Corpuscular Volume 94 fL (80-100); Monocytes Percent Auto 6.8 % (0.0-11.0); Neutrophils Percent Auto 74.2 % (42.0-72.0); Platelet Count* 208 K/uL (140-440); RDW Coefficient of Variation % 13.5 % (11.5-15.5); Red Blood Count 3.61 m/uL (4.00-5.20); White Blood Count* 5.75 K/uL (4.50-11.00)
[2022-02-23 08:32] LABS: Slide Review Reflex No
[2022-02-23 08:45] LABS: Albumin* 4.2 g/dL (3.3-5.0); Chloride* 107 mmol/L (96-114); Sodium* 138 mmol/L (135-149)
[2022-02-23 08:48] LABS: Alanine Aminotransferase* 20 U/L (4-35); Alkaline Phosphatase* 115 U/L (40-150); Aspartate Amino Transferase* 23 U/L (12-35); Bilirubin Total* 0.2 mg/dL (0.1-1.5); Blood Urea Nitrogen* 14 mg/dL (5-24); Carbon Dioxide* 25 mmol/L (20-32); Creatinine* 0.6 mg/dL (0.5-1.5); Estimated Glomerular Filt Rate 116 ml/min; Glucose* 101 mg/dL (60-115); Total Protein* 6.5 g/dL (6.0-8.3)
[2022-02-23 08:49] LABS: Calcium* 8.7 mg/dL (8.4-10.6)
[2022-02-23] MEDS: dexAMETHasone 10 MG in 0.9 % SODIUM CHLORIDE 100 ml 100 ML 404 MG IVPB (10:00)
[2022-02-23] MEDS: SODIUM CHLORIDE 0.9 % (FLUSH) 10 ML SYRINGE IVF ×2 (10:01→12:12)
[2022-02-23] MEDS: PALONOSETRON 0.25 MG/5 ML inj IV (10:01)
[2022-02-23] MEDS: 0.9 % SODIUM CHLORIDE 250 ml IV (10:22)
[2022-02-23] MEDS: FOSAPREPITANT 150 MG inj 150 MG in 0.9 % SODIUM CHLORIDE 250 ml 250 ML 510 MG IVPB (10:22)
[2022-02-23] MEDS: HEPARIN 500 UNIT/5 ML SYRINGE IVF (12:12)
--- NOTE | 2022-02-23 14:35 | PC.NURSE ---
Met with patient after her oncology visit today. Side effects of Paclitaxel discussed including low blood counts, nausea, hypersensitivity reaction, arthralgia, myalgia, nail changes, hair loss, etc. and consent signed. Patient was given printed information. Patient has already purchased the cryotherapy supplies and will bring them to her appointments weekly. Patient encouraged to call with questions or concerns.
[2022-03-09 10:23] LABS: SARS PCR* Negative SARS-CoV-2 (Negative)
[2022-03-09 10:30] VITALS: BP 105/71; PULSE 74; RESP 16; TEMP 36.8; O2SAT 97
[2022-03-09 11:11] LABS: Basophils Absolute Auto 0.06 K/uL (0.00-0.30); Basophils Percent Auto 0.8 % (0.0-3.0); Eosinophils Absolute Auto 0.02 K/uL (0.00-0.50); Eosinophils Percent Auto 0.3 % (0.0-7.0); Hematocrit 30.4 % (33.0-51.0); Hemoglobin* 10.2 gm/dL (12.0-16.0); Immature Granulocytes Abs Auto 0.18 K/uL (0.00-0.30); Lymphocytes Percent Auto 10.8 % (20-44); Mean Corpuscular HGB Conc 34 gm/dL (32-36); Mean Corpuscular Hemoglobin 32 pg (26-34); Mean Corpuscular Volume 95 fL (80-100); Monocytes Percent Auto 5.4 % (0.0-11.0); Neutrophils Percent Auto 80.4 % (42.0-72.0); Platelet Count* 196 K/uL (140-440); RDW Coefficient of Variation % 14.4 % (11.5-15.5); Red Blood Count 3.21 m/uL (4.00-5.20); White Blood Count* 7.98 K/uL (4.50-11.00)
[2022-03-09 11:14] LABS: Slide Review Reflex No
[2022-03-09 11:23] LABS: Albumin* 4.1 g/dL (3.3-5.0); Chloride* 103 mmol/L (96-114)
[2022-03-09 11:24] LABS: Sodium* 135 mmol/L (135-149)
[2022-03-09 11:26] LABS: Aspartate Amino Transferase* 21 U/L (12-35); Carbon Dioxide* 25 mmol/L (20-32); Creatinine* 0.7 mg/dL (0.5-1.5); Estimated Glomerular Filt Rate 112 ml/min; Total Protein* 6.3 g/dL (6.0-8.3)
[2022-03-09 11:27] LABS: Alanine Aminotransferase* 21 U/L (4-35); Alkaline Phosphatase* 100 U/L (40-150); Bilirubin Total* < 0.1 mg/dL (0.1-1.5); Blood Urea Nitrogen* 15 mg/dL (5-24); Glucose* 97 mg/dL (60-115)
[2022-03-09] MEDS: PALONOSETRON 0.25 MG/5 ML inj IVP (12:11)
[2022-03-09] MEDS: dexAMETHasone 10 MG in 0.9 % SODIUM CHLORIDE 100 ml 100 ML 404 MG IVPB (12:11)
[2022-03-09] MEDS: FAMOTIDINE 20 MG, diphenhydrAMINE 50 MG in 0.9 % SODIUM CHLORIDE 100 ml 100 ML 309 MG IVPB (12:40)
[2022-03-09] MEDS: PACLitaxeL 145 MG, TUBING PRIMARY 1 EACH, In-line 0.2 micron filter set 1 EACH in 0.9 %... 274.17 MG IV (12:58)
[2022-03-09] MEDS: 0.9 % SODIUM CHLORIDE 250 ml IV (13:55)
[2022-03-09] MEDS: HEPARIN 500 UNIT/5 ML SYRINGE IVF (13:55)
[2022-03-09] MEDS: SODIUM CHLORIDE 0.9 % (FLUSH) 10 ML SYRINGE IVF (13:55)
[2022-03-16 09:06] VITALS: BP 99/69; PULSE 76; RESP 16; TEMP 36.3; O2SAT 93
[2022-03-16 09:32] LABS: Eosinophils Percent Auto 1.3 % (0.0-7.0); Hematocrit 31.1 % (33.0-51.0); Hemoglobin* 10.7 gm/dL (12.0-16.0); Immature Granulocytes Abs Auto 0.04 K/uL (0.00-0.30); Lymphocytes Percent Auto 14.2 % (20-44); Mean Corpuscular HGB Conc 34 gm/dL (32-36); Mean Corpuscular Hemoglobin 32 pg (26-34); Mean Corpuscular Volume 93 fL (80-100); Monocytes Percent Auto 7.8 % (0.0-11.0); Neutrophils Percent Auto 74.7 % (42.0-72.0); Platelet Count* 317 K/uL (140-440); RDW Coefficient of Variation % 14.6 % (11.5-15.5); Red Blood Count 3.33 m/uL (4.00-5.20); White Blood Count* 3.87 K/uL (4.50-11.00)
[2022-03-16] MEDS: SODIUM CHLORIDE 0.9 % (FLUSH) 10 ML SYRINGE IVF ×2 (09:33→10:11)
[2022-03-16 09:45] LABS: Slide Review Reflex No
[2022-03-16 09:52] LABS: Albumin* 4.2 g/dL (3.3-5.0); Chloride* 104 mmol/L (96-114); Potassium* 3.8 mmol/L (3.6-5.1); Sodium* 135 mmol/L (135-149)
[2022-03-16 09:54] LABS: Creatinine* 0.6 mg/dL (0.5-1.5); Estimated Glomerular Filt Rate 116 ml/min
[2022-03-16 09:55] LABS: Alanine Aminotransferase* 35 U/L (4-35); Alkaline Phosphatase* 92 U/L (40-150); Aspartate Amino Transferase* 30 U/L (12-35); Bilirubin Total* 0.3 mg/dL (0.1-1.5); Blood Urea Nitrogen* 13 mg/dL (5-24); Calcium* 8.8 mg/dL (8.4-10.6); Carbon Dioxide* 25 mmol/L (20-32); Glucose* 125 mg/dL (60-115); Total Protein* 6.4 g/dL (6.0-8.3)
[2022-03-16] MEDS: 0.9 % SODIUM CHLORIDE 250 ml IV (10:11)
[2022-03-16] MEDS: dexAMETHasone 10 MG in 0.9 % SODIUM CHLORIDE 100 ml 100 ML 404 MG IVPB (10:38)
[2022-03-16] MEDS: PALONOSETRON 0.25 MG/5 ML inj IVP (10:39)
[2022-03-16] MEDS: FAMOTIDINE 20 MG, diphenhydrAMINE 50 MG in 0.9 % SODIUM CHLORIDE 100 ml 100 ML 309 MG IVPB (11:04)
[2022-03-16] MEDS: PACLitaxeL 145 MG, TUBING PRIMARY 1 EACH, In-line 0.2 micron filter set 1 EACH in 0.9 %... 274.17 MG IV (11:28)
[2022-03-23 10:57] LABS: Basophils Percent Auto 1.4 % (0.0-3.0); Eosinophils Percent Auto 3.9 % (0.0-7.0); Hematocrit 33.2 % (33.0-51.0); Hemoglobin* 11.3 gm/dL (12.0-16.0); Immature Granulocytes Abs Auto 0.03 K/uL (0.00-0.30); Lymphocytes Percent Auto 18.2 % (20-44); Mean Corpuscular HGB Conc 34 gm/dL (32-36); Mean Corpuscular Hemoglobin 32 pg (26-34); Mean Corpuscular Volume 94 fL (80-100); Monocytes Percent Auto 10.4 % (0.0-11.0); Neutrophils Percent Auto 65.3 % (42.0-72.0); Platelet Count* 331 K/uL (140-440); RDW Coefficient of Variation % 14.6 % (11.5-15.5); Red Blood Count 3.52 m/uL (4.00-5.20); White Blood Count* 3.57 K/uL (4.50-11.00)
[2022-03-23 11:03] LABS: Slide Review Reflex No
[2022-03-23 11:12] LABS: Albumin* 4.3 g/dL (3.3-5.0); Chloride* 103 mmol/L (96-114)
[2022-03-23 11:13] LABS: Potassium* 3.9 mmol/L (3.6-5.1); Sodium* 136 mmol/L (135-149)
[2022-03-23 11:15] LABS: Aspartate Amino Transferase* 44 U/L (12-35); Bilirubin Total* 0.2 mg/dL (0.1-1.5); Blood Urea Nitrogen* 13 mg/dL (5-24); Carbon Dioxide* 26 mmol/L (20-32); Creatinine* 0.6 mg/dL (0.5-1.5); Estimated Glomerular Filt Rate 116 ml/min; Total Protein* 6.6 g/dL (6.0-8.3)
[2022-03-23 11:16] LABS: Alanine Aminotransferase* 68 U/L (4-35); Alkaline Phosphatase* 85 U/L (40-150); Calcium* 8.8 mg/dL (8.4-10.6); Glucose* 102 mg/dL (60-115)
[2022-03-23] MEDS: dexAMETHasone 10 MG in 0.9 % SODIUM CHLORIDE 100 ml 100 ML 404 MG IVPB (12:38)
[2022-03-23] MEDS: PALONOSETRON 0.25 MG/5 ML inj IVP (12:39)
[2022-03-23] MEDS: 0.9 % SODIUM CHLORIDE 250 ml IV (12:39)
[2022-03-23] MEDS: FAMOTIDINE 20 MG, diphenhydrAMINE 25 MG in 0.9 % SODIUM CHLORIDE 100 ml 100 ML 309 MG IVPB (13:06)
[2022-03-23] MEDS: PACLitaxeL 145 MG, TUBING PRIMARY 1 EACH, In-line 0.2 micron filter set 1 EACH in 0.9 %... 274.17 MG IV (13:46)
[2022-03-23] MEDS: HEPARIN 500 UNIT/5 ML SYRINGE IVF (15:07)
[2022-03-23] MEDS: SODIUM CHLORIDE 0.9 % (FLUSH) 10 ML SYRINGE IVF (15:07)
[2022-03-30 09:39] VITALS: BP 117/79; PULSE 79; RESP 16; TEMP 36.1; O2SAT 100
[2022-03-30 10:13] LABS: Basophils Percent Auto 0.7 % (0.0-3.0); Eosinophils Percent Auto 6.3 % (0.0-7.0); Hematocrit 33.6 % (33.0-51.0); Hemoglobin* 11.5 gm/dL (12.0-16.0); Immature Granulocytes Abs Auto 0.03 K/uL (0.00-0.30); Lymphocytes Percent Auto 13.7 % (20-44); Mean Corpuscular HGB Conc 34 gm/dL (32-36); Mean Corpuscular Hemoglobin 32 pg (26-34); Mean Corpuscular Volume 95 fL (80-100); Neutrophils Percent Auto 72.6 % (42.0-72.0); Platelet Count* 275 K/uL (140-440); RDW Coefficient of Variation % 14.3 % (11.5-15.5); Red Blood Count 3.55 m/uL (4.00-5.20); White Blood Count* 4.15 K/uL (4.50-11.00)
[2022-03-30 10:40] LABS: Slide Review Reflex No
[2022-03-30 11:03] LABS: Alanine Aminotransferase* 53 U/L (4-35); Albumin* 4.1 g/dL (3.3-5.0); Alkaline Phosphatase* 95 U/L (40-150); Aspartate Amino Transferase* 36 U/L (12-35); Bilirubin Total* 0.3 mg/dL (0.1-1.5); Blood Urea Nitrogen* 11 mg/dL (5-24); Calcium* 8.7 mg/dL (8.4-10.6); Carbon Dioxide* 24 mmol/L (20-32); Chloride* 104 mmol/L (96-114); Creatinine* 0.6 mg/dL (0.5-1.5); Estimated Glomerular Filt Rate 116 ml/min; Glucose* 136 mg/dL (60-115); Potassium* 3.6 mmol/L (3.6-5.1); Sodium* 136 mmol/L (135-149); Total Protein* 6.4 g/dL (6.0-8.3)
[2022-03-30] MEDS: 0.9 % SODIUM CHLORIDE 250 ml IV (11:49)
[2022-03-30] MEDS: PALONOSETRON 0.25 MG/5 ML inj IVP (11:49)
[2022-03-30] MEDS: dexAMETHasone 10 MG in 0.9 % SODIUM CHLORIDE 100 ml 100 ML 404 MG IVPB (11:49)
[2022-03-30] MEDS: SODIUM CHLORIDE 0.9 % (FLUSH) 10 ML SYRINGE IVF (11:51)
[2022-03-30] MEDS: FAMOTIDINE 20 MG, diphenhydrAMINE 25 MG in 0.9 % SODIUM CHLORIDE 100 ml 100 ML 309 MG IVPB (12:20)
[2022-03-30] MEDS: PACLitaxeL 145 MG, TUBING PRIMARY 1 EACH, In-line 0.2 micron filter set 1 EACH in 0.9 %... 274.17 MG IV (12:47)
[2022-04-06 09:14] LABS: Basophils Absolute Auto 0.03 K/uL (0.00-0.30); Basophils Percent Auto 0.4 % (0.0-3.0); Eosinophils Percent Auto 2.9 % (0.0-7.0); Hematocrit 34.7 % (33.0-51.0); Hemoglobin* 11.7 gm/dL (12.0-16.0); Immature Granulocytes Abs Auto 0.04 K/uL (0.00-0.30); Immature Granulocytes Pct Auto 0.6 %; Lymphocytes Percent Auto 7.6 % (20-44); Mean Corpuscular HGB Conc 34 gm/dL (32-36); Mean Corpuscular Hemoglobin 32 pg (26-34); Mean Corpuscular Volume 95 fL (80-100); Neutrophils Percent Auto 83.5 % (42.0-72.0); Platelet Count* 232 K/uL (140-440); RDW Coefficient of Variation % 13.9 % (11.5-15.5); Red Blood Count 3.65 m/uL (4.00-5.20)
[2022-04-06 09:23] LABS: Slide Review Reflex No
[2022-04-06 09:30] LABS: Albumin* 4.1 g/dL (3.3-5.0); Chloride* 105 mmol/L (96-114); Potassium* 3.9 mmol/L (3.6-5.1); Sodium* 138 mmol/L (135-149)
[2022-04-06 09:32] LABS: Creatinine* 0.6 mg/dL (0.5-1.5); Estimated Glomerular Filt Rate 116 ml/min
[2022-04-06 09:33] LABS: Alanine Aminotransferase* 40 U/L (4-35); Alkaline Phosphatase* 80 U/L (40-150); Aspartate Amino Transferase* 29 U/L (12-35); Bilirubin Total* 0.3 mg/dL (0.1-1.5); Blood Urea Nitrogen* 11 mg/dL (5-24); Carbon Dioxide* 25 mmol/L (20-32); Glucose* 107 mg/dL (60-115); Total Protein* 6.5 g/dL (6.0-8.3)
[2022-04-06 09:34] LABS: Calcium* 8.8 mg/dL (8.4-10.6)
[2022-04-06 10:04] VITALS: BP 113/76; PULSE 84; RESP 16; TEMP 36.7; O2SAT 96
[2022-04-06] MEDS: PALONOSETRON 0.25 MG/5 ML inj IVP (10:31)
[2022-04-06] MEDS: dexAMETHasone 10 MG in 0.9 % SODIUM CHLORIDE 100 ml 100 ML 404 MG IVPB (10:31)
--- NOTE | 2022-04-06 10:47 | ONC.NURNOTE ---
Pt here for chemo today. She notes slightly blood-tinged mucus when blowing nose but denies nosebleeds; recommended using a humidifier at home, especially while sleeping and may also use saline nasal spray prn. Pt began using a humidifier last night and let us know if it worsens. She also reports having a dry mouth, saying she has a breast nurse navigator friend who recommended Biotene mouthwash. She picked some up but has not started it yet; commercial loan underwriter reinforced this recommendation and to notify if worsening. Pt also reports some left upper quadrant tenderness on her lower rib; she notices it when she pushes on it or with large arm movements, describing it feeling like a bruise, not sharp or stabbing. Recommended pt notify us if it persists or worsens; she is agreeable to this plan.
[2022-04-06] MEDS: FAMOTIDINE 20 MG, diphenhydrAMINE 25 MG in 0.9 % SODIUM CHLORIDE 100 ml 100 ML 309 MG IVPB (10:56)
[2022-04-06] MEDS: PACLitaxeL 145 MG, TUBING PRIMARY 1 EACH, In-line 0.2 micron filter set 1 EACH in 0.9 %... 274.17 MG IV (11:21)
[2022-04-06] MEDS: HEPARIN 500 UNIT/5 ML SYRINGE IVF (12:47)
[2022-04-06] MEDS: SODIUM CHLORIDE 0.9 % (FLUSH) 10 ML SYRINGE IVF (12:47)
--- NOTE | 2022-04-11 10:46 | ONC.NURNOTE ---
Addendum entered by Jennifer Wren RN 04/12/22 14:23: After discussion with Lilo, pt needs to be fever free for 5days before next treatment and reevaluated for any other symptoms at that time. Symptoms should be resolved prior to restarting Taxol. [facility] who will call pt with this information. Original Note: Pt called this am stating she was in the Emergency Room with a fever yesterday and tested positive for COVID. Symptoms started 04/09/22 evening. 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. Pt verbalized understanding of plan of care.
--- NOTE | 2022-04-12 16:00 | PC.NURSE ---
Call to patient to discuss ongoing treatment plan. Patient informed that Dr. Nagy recommends she be fever free for 5 days and symptom free the day of treatment before we can resume Taxol. Patient has been fever free today and her symptoms (fatigue, body aches, cough) seem to be improving but overall she is still not feeling well. Patient tentatively scheduled for 04/20 to resume her Taxol infusions. [facility] will call her 04/19 to get an update on her symptoms. Patient verbalizes understanding of plan.
--- NOTE | 2022-04-19 11:44 | PC.NURSE ---
Call to patient in follow up to her recent COVID diagnosis. Patient is asymptomatic. Patient will plan to resume treatment tomorrow with labs and follow up prior.
[2022-04-20 08:37] LABS: Basophils Percent Auto 0.5 % (0.0-3.0); Eosinophils Percent Auto 4.4 % (0.0-7.0); Hematocrit 34.6 % (33.0-51.0); Hemoglobin* 11.6 gm/dL (12.0-16.0); Immature Granulocytes Pct Auto 0.5 %; Lymphocytes Percent Auto 19.3 % (20-44); Mean Corpuscular HGB Conc 34 gm/dL (32-36); Mean Corpuscular Hemoglobin 31 pg (26-34); Mean Corpuscular Volume 94 fL (80-100); Monocytes Percent Auto 8.9 % (0.0-11.0); Neutrophils Percent Auto 66.4 % (42.0-72.0); Platelet Count* 282 K/uL (140-440); RDW Coefficient of Variation % 12.8 % (11.5-15.5); Red Blood Count 3.69 m/uL (4.00-5.20); White Blood Count* 3.83 K/uL (4.50-11.00)
[2022-04-20 08:39] LABS: Slide Review Reflex No
[2022-04-20 08:57] LABS: Albumin* 4.1 g/dL (3.3-5.0); Chloride* 106 mmol/L (96-114)
[2022-04-20 08:58] LABS: Sodium* 138 mmol/L (135-149)
[2022-04-20 09:00] LABS: Alanine Aminotransferase* 24 U/L (4-35); Alkaline Phosphatase* 75 U/L (40-150); Aspartate Amino Transferase* 23 U/L (12-35); Bilirubin Total* 0.4 mg/dL (0.1-1.5); Blood Urea Nitrogen* 16 mg/dL (5-24); Carbon Dioxide* 28 mmol/L (20-32); Creatinine* 0.7 mg/dL (0.5-1.5); Estimated Glomerular Filt Rate 112 ml/min; Glucose* 91 mg/dL (60-115); Total Protein* 6.6 g/dL (6.0-8.3)
[2022-04-20 09:01] LABS: Calcium* 8.9 mg/dL (8.4-10.6)
[2022-04-20] MEDS: PALONOSETRON 0.25 MG/5 ML inj IVP (09:51)
[2022-04-20] MEDS: 0.9 % SODIUM CHLORIDE 250 ml IV (09:52)
[2022-04-20] MEDS: dexAMETHasone 10 MG in 0.9 % SODIUM CHLORIDE 100 ml 100 ML 404 MG IVPB (09:52)
[2022-04-20] MEDS: SODIUM CHLORIDE 0.9 % (FLUSH) 10 ML SYRINGE IVF (09:52)
[2022-04-20] MEDS: FAMOTIDINE 20 MG, diphenhydrAMINE 25 MG in 0.9 % SODIUM CHLORIDE 100 ml 100 ML 309 MG IVPB (10:20)
[2022-04-20] MEDS: PACLitaxeL 145 MG, TUBING PRIMARY 1 EACH, In-line 0.2 micron filter set 1 EACH in 0.9 %... 274.17 MG IV (10:42)
--- NOTE | 2022-04-20 16:02 | ONC.NURNOTE ---
Patient told of Dr. borjas leaving the [facility] system due to [facility] pulling their oncologist. Patient will see [facility] provider in the interm
[2022-04-27 09:03] VITALS: BP 118/77; PULSE 86; RESP 16; TEMP 36.3; O2SAT 97
[2022-04-27 09:16] LABS: Basophils Percent Auto 0.3 % (0.0-3.0); Eosinophils Percent Auto 3.3 % (0.0-7.0); Immature Granulocytes Pct Auto 0.8 %; Lymphocytes Percent Auto 18.8 % (20-44); Mean Corpuscular HGB Conc 33 gm/dL (32-36); Mean Corpuscular Hemoglobin 32 pg (26-34); Mean Corpuscular Volume 95 fL (80-100); Monocytes Percent Auto 7.5 % (0.0-11.0); Neutrophils Percent Auto 69.3 % (42.0-72.0); Platelet Count* 235 K/uL (140-440); RDW Coefficient of Variation % 12.5 % (11.5-15.5); Red Blood Count 3.47 m/uL (4.00-5.20); White Blood Count* 3.62 K/uL (4.50-11.00)
[2022-04-27 09:21] LABS: Slide Review Reflex No
[2022-04-27 09:27] LABS: Albumin* 3.9 g/dL (3.3-5.0)
[2022-04-27 09:28] LABS: Chloride* 108 mmol/L (96-114); Potassium* 3.9 mmol/L (3.6-5.1); Sodium* 137 mmol/L (135-149)
[2022-04-27 09:30] LABS: Aspartate Amino Transferase* 28 U/L (12-35); Bilirubin Total* 0.3 mg/dL (0.1-1.5); Carbon Dioxide* 28 mmol/L (20-32); Creatinine* 0.6 mg/dL (0.5-1.5); Estimated Glomerular Filt Rate 116 ml/min
[2022-04-27 09:31] LABS: Alanine Aminotransferase* 32 U/L (4-35); Alkaline Phosphatase* 80 U/L (40-150); Blood Urea Nitrogen* 13 mg/dL (5-24); Calcium* 8.8 mg/dL (8.4-10.6); Glucose* 90 mg/dL (60-115); Total Protein* 6.3 g/dL (6.0-8.3)
--- NOTE | 2022-04-27 09:33 | PC.NURSE ---
Pt is present at [facility] today for Taxol infusion. Brianda shares that she has stubbed her RIGHT great toe several times and it is very tender and has bled/oozed underneath the nail. RN assessed the toe. The skin is not warm to the touch. There is redness and very minimal swelling. RN advised pt to soak her toe to keep it really clean. She verbalized understanding. Pt has no s/s of neuropathy. Jordana Garza RN
[2022-04-27] MEDS: dexAMETHasone 10 MG in 0.9 % SODIUM CHLORIDE 100 ml 100 ML 404 MG IVPB (09:55)
[2022-04-27] MEDS: 0.9 % SODIUM CHLORIDE 250 ml IV (09:55)
[2022-04-27] MEDS: PALONOSETRON 0.25 MG/5 ML inj IVP (09:55)
[2022-04-27] MEDS: FAMOTIDINE 20 MG, diphenhydrAMINE 25 MG in 0.9 % SODIUM CHLORIDE 100 ml 100 ML 309 MG IVPB (10:15)
[2022-04-27] MEDS: PACLitaxeL 145 MG, TUBING PRIMARY 1 EACH, In-line 0.2 micron filter set 1 EACH in 0.9 %... 274.17 MG IV (10:48)
[2022-05-04 08:40] LABS: Basophils Percent Auto 0.3 % (0.0-3.0); Eosinophils Percent Auto 3.9 % (0.0-7.0); Hematocrit 34.8 % (33.0-51.0); Hemoglobin* 11.6 gm/dL (12.0-16.0); Immature Granulocytes Pct Auto 0.6 %; Lymphocytes Percent Auto 17.5 % (20-44); Mean Corpuscular HGB Conc 33 gm/dL (32-36); Mean Corpuscular Hemoglobin 32 pg (26-34); Mean Corpuscular Volume 95 fL (80-100); Monocytes Percent Auto 7.3 % (0.0-11.0); Neutrophils Percent Auto 70.4 % (42.0-72.0); Platelet Count* 264 K/uL (140-440); RDW Coefficient of Variation % 12.6 % (11.5-15.5); Red Blood Count 3.66 m/uL (4.00-5.20); White Blood Count* 3.31 K/uL (4.50-11.00)
[2022-05-04 08:50] LABS: Albumin* 4.2 g/dL (3.3-5.0)
[2022-05-04 08:51] LABS: Chloride* 107 mmol/L (96-114); Potassium* 4.1 mmol/L (3.6-5.1); Slide Review Reflex No; Sodium* 138 mmol/L (135-149)
[2022-05-04 08:53] LABS: Aspartate Amino Transferase* 35 U/L (12-35); Bilirubin Total* 0.4 mg/dL (0.1-1.5); Carbon Dioxide* 26 mmol/L (20-32); Creatinine* 0.6 mg/dL (0.5-1.5); Estimated Glomerular Filt Rate 116 ml/min; Total Protein* 6.6 g/dL (6.0-8.3)
[2022-05-04 08:54] LABS: Alanine Aminotransferase* 45 U/L (4-35); Alkaline Phosphatase* 79 U/L (40-150); Blood Urea Nitrogen* 14 mg/dL (5-24); Calcium* 8.8 mg/dL (8.4-10.6); Glucose* 101 mg/dL (60-115)
[2022-05-04] MEDS: dexAMETHasone 10 MG in 0.9 % SODIUM CHLORIDE 100 ml 100 ML 404 MG IVPB (09:49)
[2022-05-04] MEDS: 0.9 % SODIUM CHLORIDE 250 ml IV (09:49)
[2022-05-04] MEDS: PALONOSETRON 0.25 MG/5 ML inj IVP (09:49)
[2022-05-04] MEDS: FAMOTIDINE 20 MG, diphenhydrAMINE 25 MG in 0.9 % SODIUM CHLORIDE 100 ml 100 ML 205 MG IVPB (10:17)
[2022-05-04] MEDS: PACLitaxeL 145 MG, TUBING PRIMARY 1 EACH, In-line 0.2 micron filter set 1 EACH in 0.9 %... 274.17 MG IV (10:34)
[2022-05-04] MEDS: HEPARIN 500 UNIT/5 ML SYRINGE IVF (11:53)
[2022-05-04] MEDS: SODIUM CHLORIDE 0.9 % (FLUSH) 10 ML SYRINGE IVF (11:53)
--- NOTE | 2022-05-04 13:14 | ONC.NURNOTE ---
Accompanied patient to her oncology visit. Printed information given for Tamoxifen and Anastrozole. Referral for Radiation Oncology faxed to [facility], they will call patient to schedule. Order for port removal after 06/15/2022 faxed to [facility], they will call her to schedule. Patient verbalizes understanding and was encouraged to call with questions or concerns.
--- NOTE | 2022-05-06 10:08 | ONC.NURNOTE ---
Pt called noting 2 of her kids have had fevers this week. She suspects Influenza as she had Covid a few weeks ago; recommended pt have them tested. Pt is feeling well/no fevers; she asked about parameters for being seen in ED over the weekend, as her chemotherapy home instructions discuss. Reviewed with pt that if she develops a fever this weekend, she should be seen for Influenza/additional testing, noting that urgent care would be ok. Reviewed that if she has a fever plus additional symptoms, i.e. SOB, respiratory changes, she should be seen in ED [facility]. Reviewed her labs this week showing low WBC but ANC WNL. Pt will update us if she develops any symptoms/has testing before chemo appt next Mon.
[2022-05-11 09:07] VITALS: BP 120/77; PULSE 90; RESP 16; TEMP 36.4; O2SAT 97
[2022-05-11 09:34] LABS: Basophils Percent Auto 0.5 % (0.0-3.0); Eosinophils Percent Auto 2.2 % (0.0-7.0); Hematocrit 36.5 % (33.0-51.0); Hemoglobin* 12.3 gm/dL (12.0-16.0); Immature Granulocytes Pct Auto 0.5 %; Lymphocytes Percent Auto 17.8 % (20-44); Mean Corpuscular HGB Conc 34 gm/dL (32-36); Mean Corpuscular Hemoglobin 32 pg (26-34); Mean Corpuscular Volume 94 fL (80-100); Monocytes Percent Auto 5.1 % (0.0-11.0); Neutrophils Percent Auto 73.9 % (42.0-72.0); Platelet Count* 262 K/uL (140-440); RDW Coefficient of Variation % 12.4 % (11.5-15.5); Red Blood Count 3.87 m/uL (4.00-5.20)
[2022-05-11 09:36] LABS: Slide Review Reflex No
[2022-05-11 09:42] LABS: Albumin* 4.3 g/dL (3.3-5.0); Chloride* 106 mmol/L (96-114)
[2022-05-11 09:43] LABS: Potassium* 3.8 mmol/L (3.6-5.1); Sodium* 139 mmol/L (135-149)
[2022-05-11 09:45] LABS: Aspartate Amino Transferase* 45 U/L (12-35); Bilirubin Total* 0.4 mg/dL (0.1-1.5); Carbon Dioxide* 27 mmol/L (20-32); Creatinine* 0.7 mg/dL (0.5-1.5); Estimated Glomerular Filt Rate 112 ml/min
[2022-05-11 09:46] LABS: Alanine Aminotransferase* 63 U/L (4-35); Alkaline Phosphatase* 86 U/L (40-150); Blood Urea Nitrogen* 14 mg/dL (5-24); Glucose* 113 mg/dL (60-115); Total Protein* 6.8 g/dL (6.0-8.3)
[2022-05-11] MEDS: 0.9 % SODIUM CHLORIDE 250 ml IV (10:18)
[2022-05-11] MEDS: PALONOSETRON 0.25 MG/5 ML inj IVP (10:21)
[2022-05-11] MEDS: dexAMETHasone 10 MG in 0.9 % SODIUM CHLORIDE 100 ml 100 ML 404 MG IVPB (10:23)
[2022-05-11] MEDS: FAMOTIDINE 20 MG, diphenhydrAMINE 25 MG in 0.9 % SODIUM CHLORIDE 100 ml 100 ML 307.5 MG IVPB (10:46)
[2022-05-11] MEDS: PACLitaxeL 145 MG, TUBING PRIMARY 1 EACH, In-line 0.2 micron filter set 1 EACH in 0.9 %... 274.17 MG IV (11:18)
[2022-05-11] MEDS: SODIUM CHLORIDE 0.9 % (FLUSH) 10 ML SYRINGE IVF (12:41)
[2022-05-11] MEDS: HEPARIN 500 UNIT/5 ML SYRINGE IVF (13:53)
--- NOTE | 2022-05-13 08:48 | ONC.NURNOTE ---
Patient called office stating that she got a papercut earlier this week and woke up this morning with it infected. She notes that area is red, warm, and sore. Picture was sent to underwriter and it was shown to [facility]. THe following instructions were left via message to patient: Vinegar soaks (1 part vinegar to 2 parts water) for 15 minutes 3 times per day. Triple antibiotic to area between soaks. Call office on Monday to update us.
--- NOTE | 2022-05-16 14:18 | ONC.NURNOTE ---
Rad Onc requested patients flowsheets for her chemotherapy. These were all faxed to them.
[2022-05-18 08:50] VITALS: BP 110/73; PULSE 66; RESP 16; TEMP 36.7; O2SAT 99
[2022-05-18 09:35] LABS: Albumin* 4.1 g/dL (3.3-5.0); Chloride* 108 mmol/L (96-114)
[2022-05-18 09:36] LABS: Basophils Percent Auto 0.3 % (0.0-3.0); Eosinophils Percent Auto 1.9 % (0.0-7.0); Hematocrit 35.9 % (33.0-51.0); Hemoglobin* 11.9 gm/dL (12.0-16.0); Immature Granulocytes Pct Auto 0.6 %; Lymphocytes Percent Auto 20.8 % (20-44); Mean Corpuscular HGB Conc 33 gm/dL (32-36); Mean Corpuscular Hemoglobin 32 pg (26-34); Mean Corpuscular Volume 95 fL (80-100); Monocytes Percent Auto 7.4 % (0.0-11.0); Platelet Count* 282 K/uL (140-440); Potassium* 3.7 mmol/L (3.6-5.1); RDW Coefficient of Variation % 12.6 % (11.5-15.5); Red Blood Count 3.77 m/uL (4.00-5.20); Sodium* 139 mmol/L (135-149); White Blood Count* 3.12 K/uL (4.50-11.00)
[2022-05-18 09:38] LABS: Alkaline Phosphatase* 98 U/L (40-150); Bilirubin Total* 0.4 mg/dL (0.1-1.5); Blood Urea Nitrogen* 10 mg/dL (5-24); Carbon Dioxide* 26 mmol/L (20-32); Creatinine* 0.6 mg/dL (0.5-1.5); Estimated Glomerular Filt Rate 116 ml/min; Total Protein* 6.5 g/dL (6.0-8.3)
[2022-05-18 09:39] LABS: Alanine Aminotransferase* 36 U/L (4-35); Calcium* 8.8 mg/dL (8.4-10.6); Glucose* 108 mg/dL (60-115)
[2022-05-18 09:47] LABS: Slide Review Reflex No
[2022-05-18 09:55] LABS: Aspartate Amino Transferase* 26 U/L (12-35)
[2022-05-18] MEDS: dexAMETHasone 10 MG in 0.9 % SODIUM CHLORIDE 100 ml 100 ML 404 MG IVPB (10:19)
[2022-05-18] MEDS: PALONOSETRON 0.25 MG/5 ML inj IVP (10:19)
[2022-05-18] MEDS: FAMOTIDINE 20 MG, diphenhydrAMINE 25 MG in 0.9 % SODIUM CHLORIDE 100 ml 100 ML 309 MG IVPB (10:42)
[2022-05-18] MEDS: PACLitaxeL 145 MG, TUBING PRIMARY 1 EACH, In-line 0.2 micron filter set 1 EACH in 0.9 %... 274.17 MG IV (11:13)
[2022-05-18] MEDS: SODIUM CHLORIDE 0.9 % (FLUSH) 10 ML SYRINGE IVF (12:39)
[2022-05-18] MEDS: HEPARIN 500 UNIT/5 ML SYRINGE IVF (12:39)
[2022-05-25 08:53] VITALS: BP 122/84; PULSE 86; RESP 16; TEMP 36.5; O2SAT 94
[2022-05-25 09:17] LABS: Basophils Percent Auto 0.3 % (0.0-3.0); Eosinophils Percent Auto 1.7 % (0.0-7.0); Hemoglobin* 12.1 gm/dL (12.0-16.0); Mean Corpuscular HGB Conc 34 gm/dL (32-36); Mean Corpuscular Hemoglobin 32 pg (26-34); Mean Corpuscular Volume 95 fL (80-100); Monocytes Percent Auto 7.9 % (0.0-11.0); Neutrophils Percent Auto 67.1 % (42.0-72.0); Platelet Count* 249 K/uL (140-440); RDW Coefficient of Variation % 12.4 % (11.5-15.5); White Blood Count* 2.91 K/uL (4.50-11.00)
[2022-05-25 09:18] LABS: Slide Review Reflex No
[2022-05-25 09:30] LABS: Albumin* 4.1 g/dL (3.3-5.0); Chloride* 108 mmol/L (96-114)
[2022-05-25 09:31] LABS: Potassium* 4.1 mmol/L (3.6-5.1); Sodium* 137 mmol/L (135-149)
[2022-05-25 09:33] LABS: Aspartate Amino Transferase* 33 U/L (12-35); Bilirubin Total* 0.4 mg/dL (0.1-1.5); Carbon Dioxide* 25 mmol/L (20-32); Creatinine* 0.6 mg/dL (0.5-1.5); Estimated Glomerular Filt Rate 116 ml/min; Total Protein* 6.5 g/dL (6.0-8.3)
[2022-05-25 09:34] LABS: Alanine Aminotransferase* 46 U/L (4-35); Alkaline Phosphatase* 76 U/L (40-150); Blood Urea Nitrogen* 16 mg/dL (5-24); Calcium* 8.9 mg/dL (8.4-10.6); Glucose* 99 mg/dL (60-115)
[2022-05-25] MEDS: PALONOSETRON 0.25 MG/5 ML inj IVP (10:30)
[2022-05-25] MEDS: dexAMETHasone 10 MG in 0.9 % SODIUM CHLORIDE 100 ml 100 ML 404 MG IVPB (10:31)
[2022-05-25] MEDS: FAMOTIDINE 20 MG, diphenhydrAMINE 25 MG in 0.9 % SODIUM CHLORIDE 100 ml 100 ML 309 MG IVPB (10:53)
[2022-05-25] MEDS: PACLitaxeL 145 MG, TUBING PRIMARY 1 EACH, In-line 0.2 micron filter set 1 EACH in 0.9 %... 274.17 MG IV (11:19)
[2022-06-01 08:50] LABS: Basophils Percent Auto 0.7 % (0.0-3.0); Eosinophils Percent Auto 2.3 % (0.0-7.0); Hematocrit 35.6 % (33.0-51.0); Hemoglobin* 11.9 gm/dL (12.0-16.0); Immature Granulocytes Pct Auto 0.7 %; Lymphocytes Percent Auto 20.3 % (20-44); Mean Corpuscular HGB Conc 33 gm/dL (32-36); Mean Corpuscular Hemoglobin 32 pg (26-34); Mean Corpuscular Volume 94 fL (80-100); Monocytes Percent Auto 8.8 % (0.0-11.0); Neutrophils Percent Auto 67.2 % (42.0-72.0); Platelet Count* 242 K/uL (140-440); RDW Coefficient of Variation % 12.3 % (11.5-15.5); Red Blood Count 3.77 m/uL (4.00-5.20); White Blood Count* 3.06 K/uL (4.50-11.00)
[2022-06-01 08:59] LABS: Slide Review Reflex No
[2022-06-01 09:03] LABS: Albumin* 4.1 g/dL (3.3-5.0)
[2022-06-01 09:04] LABS: Chloride* 106 mmol/L (96-114); Potassium* 3.7 mmol/L (3.6-5.1); Sodium* 138 mmol/L (135-149)
[2022-06-01 09:06] LABS: Aspartate Amino Transferase* 29 U/L (12-35); Bilirubin Total* 0.4 mg/dL (0.1-1.5); Carbon Dioxide* 27 mmol/L (20-32); Creatinine* 0.6 mg/dL (0.5-1.5); Estimated Glomerular Filt Rate 116 ml/min; Total Protein* 6.5 g/dL (6.0-8.3)
[2022-06-01 09:07] LABS: Alanine Aminotransferase* 40 U/L (4-35); Alkaline Phosphatase* 73 U/L (40-150); Blood Urea Nitrogen* 14 mg/dL (5-24); Calcium* 9.1 mg/dL (8.4-10.6); Glucose* 96 mg/dL (60-115)
[2022-06-01 09:35] VITALS: BP 107/75; PULSE 80; RESP 16; TEMP 36.6; O2SAT 96
[2022-06-01] MEDS: dexAMETHasone 10 MG in 0.9 % SODIUM CHLORIDE 100 ml 100 ML 404 MG IVPB (09:58)
[2022-06-01] MEDS: 0.9 % SODIUM CHLORIDE 250 ml IV (09:58)
[2022-06-01] MEDS: PALONOSETRON 0.25 MG/5 ML inj IVP (09:58)
[2022-06-01] MEDS: FAMOTIDINE 20 MG, diphenhydrAMINE 25 MG in 0.9 % SODIUM CHLORIDE 100 ml 100 ML 309 MG IVPB (10:17)
[2022-06-01] MEDS: PACLitaxeL 145 MG, TUBING PRIMARY 1 EACH, In-line 0.2 micron filter set 1 EACH in 0.9 %... 274.17 MG IV (10:40)
[2022-06-01] MEDS: SODIUM CHLORIDE 0.9 % (FLUSH) 10 ML SYRINGE IVF (12:06)
[2022-06-01] MEDS: HEPARIN 500 UNIT/5 ML SYRINGE IVF (12:06)
== END 2022-07-25 23:59 | disposition home or self-care (01) ==
LOC: CCIC 08:15
PROVIDERS: Clinical Nurse Specialist; PCP Internal Medicine Hematology & Oncology; Referring Provider Internal Medicine Hematology & Oncology; Visit Provider Internal Medicine Hematology & Oncology
DX: Z51.11 Encounter for antineoplastic chemotherapy (principal); C50.912 Malignant neoplasm of unspecified site of left female breast; Z17.0 Estrogen receptor positive status [ER+]; R11.2 Nausea with vomiting, unspecified; T45.1X5A Adverse effect of antineoplastic and immunosuppressive drugs, initial encounter
CPT/HCPCS: 36415; 36591; 80053; 85025; 87635; 96376; 96377; 96409; 96411; 96413; 96415; 99202; 99205; 99212; 99214; 99215; J2506; J9000; J9070; J1100; J1200; J1453; J1642; J2469; J7050; J9267; S0028

== ENCOUNTER 2022-08-10 13:18 | Outpatient (CLI) | payer OTHER, SELFPAY ==
--- NOTE | 2022-08-10 13:30 | CRLHL7_ITS ---
For Patients: As a result of the Century Cures Act, medical imaging exams and procedure reports are released immediately into your electronic medical record. You may view this report before your referring provider. If you have questions, please contact your health care provider. DXA BONE MINERAL DENSITY STUDY Reason for exam: Malignant neoplasm of breast. Current height (in): 65. Weight (lb): 171. Menopause age: 42. Ethnicity: White 1. Have you had a previous hip or vertebral fracture? No. 2. Have you had any fractures during your adult life which did not result from significant trauma (e.g., auto accident)? No. 3. Did either of your parents have a hip fracture? No. 4. Do you smoke? No. 5. Have you ever taken Glucocorticoids? No. 6. Do you have rheumatoid arthritis? No. 7. Do you have secondary osteoporosis? No. 8. Do you drink 3 or more alcoholic drinks per day? No. 9. Are you being treated for osteoporosis? No. 10. Have you ever taken any of the following medications: Actonel, Evista, Fosamax, Miacalcin, Reclast, Boniva, Forteo, HRT (i.e. estrogen/hormone therapy), Protelos, Prolia, Vitamin D, Calcium, other ??? please specify. ANSWER: Yes, Vitamin D. 11. Do you have any of the following medical conditions: Anorexia or bulimia, asthma or emphysema, end stage renal disease, hyperparathyroidism, any seizure disorders, cancer, inflammatory bowel diseases, hysterectomy, other ??? please specify. ANSWER: Yes, Cancer. 12. What was your maximum height (inches)? 65. 13. Do you perform weight bearing exercise regularly? Yes. 14. Do you regularly consume dairy products? Yes. 15. Do you drink caffeinated beverages? Yes. 16. At what age did your period start? 14. 17. Are you premenopausal? Yes. 18. How many full term pregnancies have you had? 3. 19. Have you ever missed your period for more than 6 months in a row (not including or menopause)? No. TECHNIQUE: Bone mineral density study was performed using the [employer]. FINDINGS: The results of the study expressed as bone mineral density (BMD) are as follows: Lumbar spine L1 to L4: BMD: 0.964 g/cm2. T-score: -0.8. Z-score: -0.5. Neck Left: BMD: 0.917 g/cm2. T-score: 0.6. Z-score: 0.9. Right: BMD: 0.883 g/cm2. T-score: 0.3. Z-score: 0.6. Total Left: BMD: 0.974 g/cm2. T-score: 0.3. Z-score: 0.4. Right: BMD: 1.001 g/cm2. T-score: 0.5. Z-score: 0.7. IMPRESSION: Normal bone density. *Comparison exams done prior to 10/2019 were performed on different unit, [facility]. Delbert Feng M.D. Diagnostic Radiologist [email or web address] [place]/Dictated by: Delbert Feng MD @ 08/12/2022 9:43:00 AM (Electronically Signed)
== END 2022-08-10 13:19 | disposition home or self-care (01) ==
LOC: RAD 13:19
PROVIDERS: PCP Family Medicine; Visit Provider Internal Medicine Hematology & Oncology
DX: C50.919 Malignant neoplasm of unspecified site of unspecified female breast (principal)
CPT/HCPCS: 77080

== ENCOUNTER 2023-02-01 08:15 | Outpatient (CLI) | payer OTHER, SELFPAY ==
--- NOTE | 2023-02-01 08:15 | CRLHL7_ITS ---
For Patients: As a result of the Century Cures Act, medical imaging exams and procedure reports are released immediately into your electronic medical record. You may view this report before your referring provider. If you have questions, please contact your health care provider. BILATERAL SCREENING MAMMOGRAM WITH COMPUTER-AIDED DETECTION AND TOMOSYNTHESIS TECHNIQUE: CC and MLO views were obtained. These mammographic images have been obtained using full-field digital technique. These mammographic images were interpreted with the benefit of computer-aided detection. Breast Tomosynthesis was used in this interpretation. COMPARISON FILM: 10/20/21. FINDINGS: The breasts are heterogeneously dense, which may obscure small masses IMPRESSION: There is no radiographic evidence for malignancy. ASSESSMENT: BI-RADS Category 2: Benign RECOMMENDATION: Routine screening mammogram in 1 year. A lay language report of this examination will be provided to the patient. Delbert Feng M.D. Diagnostic Radiologist [email or web address] [place]/Dictated by: Delbert Feng MD @ 02/01/2023 1:15:00 PM (Electronically Signed)
== END 2023-02-01 08:16 | disposition home or self-care (01) ==
PROVIDERS: PCP Family Medicine; Visit Provider Internal Medicine Hematology & Oncology
DX: Z12.31 Encounter for screening mammogram for malignant neoplasm of breast (principal); R92.2 Inconclusive mammogram
CPT/HCPCS: 77063; 77067

== ENCOUNTER 2023-02-08 09:30 | Outpatient (RCR) | payer OTHER, SELFPAY ==
--- NOTE | 2022-08-18 13:54 | ONC.NURNOTE ---
Addendum entered by Veronica Mojica 08/19/22 15:45: Patient called to let us know that she would like to proceed with Anastrozole with Zoladex. Patient scheduled for her first injection on 09/01 and will start her Anastrozole after her second injection on 09/29. Patient will see Dr. Nagy in follow up on 10/27 with her third injection. Patient verbalizes understanding of plan. Original Note: Accompanied patient to her oncology visit. Printed information provided to patient re: Anastrozole, Zoladex and Zometa/Reclast. Patient was given a dental clearance form to be completed at her upcoming dental visit. Patient expressed feeling apprehensive about the treatment. I encouraged her to take a few days to think about it and encouraged her to call with any questions. We will touch base in a few days and finalize the plan. Proposed plan is start Zoladex sometime in the next few weeks and continue monthly ongoing. Start Anastrozole 4-5 weeks after first Zoladex injection. See Dr. Nagy with cycle 3 of Zoladex. Will decide on bisphosphonates at that visit.
--- NOTE | 2022-08-24 10:12 | URNOTE ---
REceived request for prior authorization for Gosrelin ([id number]). Per Sarah N at [facility], prior auth is not required. Call ref #[id number]
[2022-09-01 13:45] VITALS: BP 131/83; PULSE 67; RESP 18; O2SAT 97
[2022-09-01] MEDS: GOSERELIN ACETATE 3.6 MG IMPLANT SUBCUT (13:46)
[2022-09-29] MEDS: GOSERELIN ACETATE 3.6 MG IMPLANT SUBCUT (14:00)
[2022-09-29 14:52] VITALS: BP 147/84; PULSE 58; RESP 16; TEMP 36.3; O2SAT 98
[2022-10-27] MEDS: GOSERELIN ACETATE 3.6 MG IMPLANT SUBCUT (14:35)
--- NOTE | 2022-10-31 12:56 | URNOTE ---
Request received for authorization for Zometa (Zoledronic Acid) ([id number]). Prior authorization is not required per [facility] Rep. Moises Mcelroy Ref#[id number].
[2022-12-02 10:33] LABS: Calcium* 9.7 mg/dL (8.4-10.6); Creatinine* 0.6 mg/dL (0.5-1.5); Est. Creatinine Clearance* 150.65; Estimated Glomerular Filt Rate 116 ml/min
[2022-12-02 11:21] VITALS: BP 128/80; PULSE 62; RESP 16; TEMP 35.9; O2SAT 96
[2022-12-02] MEDS: ZOLEDRONIC ACID 4 MG in 0.9 % SODIUM CHLORIDE 100 ml 100 ML 420 MG IVPB (11:40)
[2022-12-02] MEDS: GOSERELIN ACETATE 3.6 MG IMPLANT SUBCUT (11:40)
--- NOTE | 2022-12-29 12:01 | URNOTE ---
Gosrelin ([id number]) has been approved 12/28/2022-12/29/2023. Auth #[id number]
[2023-01-02 09:09] VITALS: BP 147/92; PULSE 75; RESP 16; TEMP 36.4; O2SAT 98
[2023-01-02] MEDS: GOSERELIN ACETATE 3.6 MG IMPLANT SUBCUT (09:20)
[2023-02-01 08:50] VITALS: BP 135/83; PULSE 67; RESP 16; TEMP 36.1; O2SAT 98
[2023-02-01] MEDS: GOSERELIN ACETATE 3.6 MG IMPLANT SUBCUT (09:39)
--- NOTE | 2023-02-01 11:15 | ONC.NURNOTE ---
c/o neck pain and stiffness with a PHELPS. denies fevers x1week. Encouraged heating pad. also enc her to see her primary. ok to treat per Gabriela Tinsley APRN
== END 2023-02-14 23:59 | disposition home or self-care (01) ==
LOC: CCIC 09:30
PROVIDERS: Physician Assistant; PCP Family Medicine; Referring Provider Internal Medicine Hematology & Oncology; Visit Provider Internal Medicine Hematology & Oncology
DX: C50.912 Malignant neoplasm of unspecified site of left female breast (principal); Z17.0 Estrogen receptor positive status [ER+]; Z79.811 Long term (current) use of aromatase inhibitors; R11.2 Nausea with vomiting, unspecified; T45.1X5A Adverse effect of antineoplastic and immunosuppressive drugs, initial encounter; K13.79 Other lesions of oral mucosa
CPT/HCPCS: 36415; 82310; 82565; 96376; 96401; 99212; 99214; 99215; J3489; J9202

== ENCOUNTER 2023-05-03 08:12 | Outpatient (CLI) | payer OTHER, SELFPAY ==
--- NOTE | 2023-05-03 08:45 | CRLHL7_ITS ---
For Patients: As a result of the Cures Act, medical imaging exams and procedure reports are released immediately into your electronic medical record. You may view this report before your referring provider. If you have questions, please contact your health care provider. DIGITAL DIAGNOSTIC LEFT MAMMOGRAM USING TOMOSYNTHESIS AND COMPUTER-AIDED DETECTION LEFT BREAST ULTRASOUND CLINICAL HISTORY: LEFT breast skin thickening. COMPARISON: 02/01/2023, 10/27/2021. TECHNIQUE: Digital LEFT mammogram in two projections. Tomosynthesis and CAD utilized. Real-time ultrasound imaging of LEFT breast with imaging documentation. BREAST COMPOSITION: There are areas of scattered fibroglandular density. FINDINGS: 3D CC/MLO LEFT breast mammogram images submitted. Post treatment changes of lumpectomy and radiation therapy noted. No suspicious masses or architectural distortion. Targeted LEFT breast ultrasound performed 12 o`clock 4 cm from the nipple. Scar tissue is present. No suspicious findings. No postop seroma. IMPRESSION: Post treatment changes. No evidence of malignancy. RECOMMENDATIONS: Clinical follow-up and routine screening mammography. Results and recommendations discussed with the patient. BI-RADS Category 2: Benign A lay language report of this examination will be provided to the patient. Dictated by Delbert Feng MD @ 05/03/2023 9:15:13 AM jj/Dictated by: Delbert Feng MD @ 05/03/2023 9:15:00 AM (Electronically Signed)
--- NOTE | 2023-05-03 09:15 | CRLHL7_ITS ---
For Patients: As a result of the Cures Act, medical imaging exams and procedure reports are released immediately into your electronic medical record. You may view this report before your referring provider. If you have questions, please contact your health care provider. PLEASE SEE DIGITAL DIAGNOSTIC LEFT MAMMOGRAM PERFORMED SAME DAY CRL:jocy sandra/Dictated by: Delbert Feng MD @ 05/03/2023 9:15:00 AM (Electronically Signed)
== END 2023-05-03 08:13 | disposition home or self-care (01) ==
LOC: MAMMO 08:12
PROVIDERS: PCP Family Medicine; Visit Provider Physician Assistant
DX: R23.4 Changes in skin texture (principal)
CPT/HCPCS: 76642; 77065; G0279

== ENCOUNTER 2023-08-16 08:15 | Outpatient (RCR) | payer OTHER, SELFPAY ==
[2023-03-01 08:33] VITALS: BP 129/87; PULSE 70; RESP 16; TEMP 36.2; O2SAT 94
[2023-03-01] MEDS: GOSERELIN ACETATE 3.6 MG IMPLANT SUBCUT (08:38)
[2023-03-29 08:16] VITALS: BP 138/89; PULSE 62; RESP 16; TEMP 36.5; O2SAT 96
[2023-03-29] MEDS: GOSERELIN ACETATE 3.6 MG IMPLANT SUBCUT (08:41)
[2023-04-27] MEDS: GOSERELIN ACETATE 3.6 MG IMPLANT SUBCUT (09:37)
[2023-05-24 08:25] VITALS: BP 137/97; PULSE 73; RESP 16; TEMP 36.3; O2SAT 96
[2023-05-24] MEDS: GOSERELIN ACETATE 3.6 MG IMPLANT SUBCUT (08:32)
[2023-06-21 08:20] VITALS: BP 146/90; PULSE 72; RESP 16; TEMP 36.2; O2SAT 99
[2023-06-21] MEDS: GOSERELIN ACETATE 3.6 MG IMPLANT SUBCUT (08:40)
[2023-07-19] MEDS: GOSERELIN ACETATE 3.6 MG IMPLANT SUBCUT (09:25)
[2023-08-16 08:20] VITALS: BP 147/93; PULSE 67; RESP 16; TEMP 36.4; O2SAT 99
[2023-08-16] MEDS: GOSERELIN ACETATE 3.6 MG IMPLANT SUBCUT (08:30)
== END 2023-08-28 23:59 | disposition home or self-care (01) ==
LOC: CCIC 08:15
PROVIDERS: PCP Family Medicine; Referring Provider Internal Medicine Hematology & Oncology; Visit Provider Internal Medicine Hematology & Oncology
DX: C50.912 Malignant neoplasm of unspecified site of left female breast (principal); Z17.0 Estrogen receptor positive status [ER+]; Z79.811 Long term (current) use of aromatase inhibitors
CPT/HCPCS: 96401; 99212; 99215; G0463; J9202

== ENCOUNTER 2023-12-13 14:00 | Outpatient (RCR) | payer OTHER, SELFPAY ==
[2023-09-13 08:29] VITALS: BP 144/93; PULSE 59; RESP 16; TEMP 35.8; O2SAT 99
[2023-09-13] MEDS: GOSERELIN ACETATE 3.6 MG IMPLANT SUBCUT (08:45)
--- NOTE | 2023-09-13 09:17 | ONC.NURNOTE ---
Pt here for Zoladex today. She is feeling well and tolerating well. She reports she will run out of Anastrazole before Lilo appt next week. Collar Padder Blind[employer]ch requested refill from Gabriela Tinsley APRN. Pt also notes she's going to discuss oopherectomy with Dr. Nagy next week.
--- NOTE | 2023-09-22 16:28 | ONC.NURNOTE ---
Addendum entered by Veronica Mojica 09/25/23 16:42: Reviewed with Dr. Nagy. Message left with patient with the following instructions. 1. Okay to cancel 10/10 Zoladex injection. 2. Hold Anastrozole 2 weeks prior to surgery and 2 weeks after. 3. Follow up mid November. I requested patient return call to confirm that she received these instructions. Original Note: Patient called to report that she is having a JODY/BSO on 10/15. She is due for her next Zoladex on 10/10. She is wondering if she can cancel that injection. I assured her that I would review her question with Dr. Nagy next week and get back to her.
== END 2024-03-11 23:59 | disposition home or self-care (01) ==
LOC: CCIC 14:00
PROVIDERS: PCP Family Medicine; Referring Provider Internal Medicine Hematology & Oncology; Visit Provider Internal Medicine Hematology & Oncology
DX: C50.912 Malignant neoplasm of unspecified site of left female breast (principal); Z17.0 Estrogen receptor positive status [ER+]; Z79.811 Long term (current) use of aromatase inhibitors; M25.552 Pain in left hip; R23.4 Changes in skin texture; R11.2 Nausea with vomiting, unspecified; T45.1X5A Adverse effect of antineoplastic and immunosuppressive drugs, initial encounter
CPT/HCPCS: 96401; 99214; G0463; J9202

== ENCOUNTER 2024-07-22 09:50 | Outpatient (RCR) | payer BC, OTHER, SELFPAY ==
--- NOTE | 2024-04-18 15:33 | ONC.NURNOTE ---
Radiology called stating pt called back and wants to cancel ultrasound and it is not needed. Order cancelled per Andressa's note. [employer] Straightener left message that ultrasound cancelled and encouraged to call [facility] if she has any questions or concerns.
== END 2024-10-05 23:59 | disposition home or self-care (01) ==
LOC: CCIC 09:50
PROVIDERS: PCP Family Medicine; Referring Provider Internal Medicine Hematology & Oncology; Visit Provider Physician Assistant
DX: C50.912 Malignant neoplasm of unspecified site of left female breast (principal); Z17.0 Estrogen receptor positive status [ER+]; G43.909 Migraine, unspecified, not intractable, without status migrainosus; R59.0 Localized enlarged lymph nodes; R68.82 Decreased libido; R53.83 Other fatigue; M25.50 Pain in unspecified joint; Z79.811 Long term (current) use of aromatase inhibitors
CPT/HCPCS: 99214; 99215; G0463

== ENCOUNTER 2024-10-09 14:10 | Outpatient (CLI) | payer BC, SELFPAY ==
--- NOTE | 2024-10-09 14:30 | CRLHL7_ITS ---
For Patients: As a result of the Century Cures Act, medical imaging exams and procedure reports are released immediately into your electronic medical record. You may view this report before your referring provider. If you have questions, please contact your health care provider. XR DXA Bone Mineral Density (BMD) Reason for exam: On aromatase inhibitors. Current height (in): 65. Weight (lb): 187. Menopause age: 42. Ethnicity: White. 1. Have you had a previous hip or vertebral fracture? No. 2. Have you had any fractures during your adult life which did not result from significant trauma (e.g., auto accident)? No. 3. Did either of your parents have a hip fracture? No. 4. Do you smoke? No. 5. Have you ever taken Glucocorticoids? No. 6. Do you have rheumatoid arthritis? No. 7. Do you have secondary osteoporosis? No. 8. Do you drink 3 or more alcoholic drinks per day? No. 9. Are you being treated for osteoporosis? No. 10. Have you ever taken any of the following medications: Actonel, Evista, Fosamax, Miacalcin, Reclast, Boniva, Forteo, HRT (i.e. estrogen/hormone therapy), Protelos, Prolia, Vitamin D, Calcium, other ??? please specify. ANSWER: Yes, vitamin D, calcium. 11. Do you have any of the following medical conditions: Anorexia or bulimia, asthma or emphysema, end stage renal disease, hyperparathyroidism, any seizure disorders, cancer, inflammatory bowel diseases, hysterectomy, other ??? please specify. ANSWER: No. 12. What was your maximum height (inches)? 65. 13. Do you perform weight bearing exercise regularly? Yes. 14. Do you regularly consume dairy products? Yes. 15. Do you drink caffeinated beverages? Yes. 16. At what age did your period start? 14. 17. Are you premenopausal? No. 18. How many full term pregnancies have you had? 3. 19. Have you ever missed your period for more than 6 months in a row (not including or menopause)? No. TECHNIQUE: Bone mineral density study was performed using the [employer]. FINDINGS: The results of the study expressed as bone mineral density (BMD) are as follows: Lumbar spine L1 to L4: BMD: 0.945 g/cm2. T-score: -0.9. Z-score: -0.6. Neck Left: BMD: 0.937 g/cm2. T-score: 0.8. Z-score: 1.1. Right: BMD: 0.871 g/cm2. T-score: 0.2. Z-score: 0.6. Total Left: BMD: 1.007 g/cm2. T-score: 0.5. Z-score: 0.8. Right: BMD: 1.005 g/cm2. T-score: 0.5. Z-score: 0.7. IMPRESSION: Normal bone density. *Comparison exams done prior to 10/2019 were performed on different unit, [facility]. COMPARISON: Compared with scan of 08/10/2022, the bone mineral density has decreased by 2.0 percent at the spine and increased by 1.8 percent at the hip. Luci Gross M.D. Diagnostic Radiologist [email or web address] [place]/claudia / bM/Dictated by: Luci Gross MD @ 10/10/2024 7:42:00 AM (Electronically Signed)
== END 2024-10-09 14:11 | disposition home or self-care (01) ==
LOC: RAD 14:11
PROVIDERS: PCP Family Medicine; Visit Provider Physician Assistant
DX: Z79.811 Long term (current) use of aromatase inhibitors (principal)
CPT/HCPCS: 77080

== ENCOUNTER 2025-03-10 08:30 | Outpatient (RCR) | payer BC, SELFPAY ==
--- NOTE | 2024-12-11 14:59 | ONC.NURNOTE ---
Addendum entered by Veronica Mojica 12/16/24 12:01: Patient informed that Andressa Jaquez PA-C reviewed her concern and is very confident that her nasal dryness is not related to her endocrine therapy. If she feels that she needs a few weeks off the endocrine therapy to see if it improves her symptoms, we can certainly try this. Brianda said that her symptoms have been better the last few days and she is reassured that it is likely unrelated. Brianda will continue to taking the Femara but will call with any further questions or concerns. Patient is due for mammogram in in 01/2025 (at [facility]) and will follow up with Dr. Nagy for her 3 month follow up 02/24. Original Note: Patient called office and notes that she was switched from arimidex to femara in September. Around that time she started noting dryness in bilateral nasal passages, but it has worsened over the last month. She feels when she moves her nose as though there are cuts within the passage. She has used saline sprays and Vaseline to area, which does minimize discomfort for a short time; however it does not heal the area. She questions whether this AE could be from the femara. Nothing was noted in clinical pharmacology, but nursing to discuss with oncology provider tomorrow and get back to patient. If this could potentially be causing this, she would rather deal with the arthralgias from the arimix (in which case she would need a new prescription). She does note some vaginal dryness that has increased as well, but notes that the nasal dryness is more bothersome. Nursing to call patient tomorrow after discussion with plan.
== END 2025-04-12 23:59 | disposition home or self-care (01) ==
LOC: CCIC 08:30
PROVIDERS: PCP Family Medicine; Referring Provider Internal Medicine Hematology & Oncology; Visit Provider Internal Medicine Hematology & Oncology
DX: C50.912 Malignant neoplasm of unspecified site of left female breast (principal); Z17.0 Estrogen receptor positive status [ER+]; Z79.811 Long term (current) use of aromatase inhibitors; Z90.722 Acquired absence of ovaries, bilateral
CPT/HCPCS: 99213; 99214; 99215; G0463